=== PATIENT | female | born 1950 | race Caucasian/White ===

== ENCOUNTER 2021-02-01 10:01 | Outpatient (CLI) | payer MEDICARE, OTHER, SELFPAY ==
--- NOTE | ~2021-02-01 | CT_ITS ---
EXAMINATION: CT lung screening DATE: 02/01/2021 10:33 INDICATION: Personal history of nicotine dependence, current smoker with 50 pack year history TECHNIQUE: Computed tomography (CT) of the chest was performed without intravenous contrast. The dose -length product (DLP) was 91.81 mGy-cm. Automated exposure control and iterative reconstruction techn Intermolecular were employed. COMPARISON: 05/23/2017 FINDINGS: There are multiple small, stable solid nodules of the lungs which measure up to 5 mm in the right lower lobe. There is a 10 mm subsolid nodule of the left lower lobe interval enlargement but n o identifiable solid component. There is no pleural effusion or pneumothorax. No pathologically enlar ged thoracic lymph nodes are identified. The heart size is normal. A small sliding hiatal hernia is n oted. There is calcified coronary artery atherosclerosis. IMPRESSION: 1. Lung-RADS category 2: Benign appearance or behavior. Continue annual screening with noncontrast lo w-dose chest CT in 12 months. Reviewed, dictated and finalized at location B. 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 Lung-RADS category 2: Benign appearance or behavior. Continue annual screeni ng with noncontrast low-dose chest CT in 12 months.
== END 2021-02-01 10:02 | disposition home or self-care (01) ==
LOC: ANHIMG 10:03
PROVIDERS: PCP Family Medicine; Visit Provider Family Medicine
DX: Z12.2 Encounter for screening for malignant neoplasm of respiratory organs (principal); Z87.891 Personal history of nicotine dependence
CPT/HCPCS: 71271

== ENCOUNTER 2021-04-18 11:23 | Outpatient (RCR) | payer MEDICARE, OTHER, SELFPAY ==
[2021-04-18 14:28] VITALS: BP 181/72; PULSE 80; RESP 20; TEMP 36.8; O2SAT 97
[2021-04-18] MEDS: FAMOTIDINE 20 MG TABLET PO (14:30)
[2021-04-18] MEDS: diphenhydrAMINE HCl CAP 25 MG CAPSULE PO (14:30)
[2021-04-18] MEDS: ACETAMINOPHEN 325 MG TABLET 650 MG PO (14:30)
[2021-04-18 15:51] VITALS: BP 150/70; PULSE 72; O2SAT 98
== END 2021-04-18 17:00 ==
LOC: AMCINF 11:23
PROVIDERS: PCP Family Medicine; Visit Provider Internal Medicine Hematology & Oncology
DX: U07.1 COVID-19 (principal); J44.9 Chronic obstructive pulmonary disease, unspecified
CPT/HCPCS: A9270; M0247; Q0247

== ENCOUNTER 2021-12-20 08:49 | Outpatient (CLI) | payer MEDICARE, OTHER, SELFPAY ==
[2021-12-20 09:21] LABS: Basophils Absolute Auto 0.1 K/mm3 (0.0-0.1); Basophils Percent Auto 0.9 % (0.2-1.2); Eosinophils Absolute Auto 0.2 K/mm3 (0-0.3); Eosinophils Percent Auto 2.1 % (0-4.4); Hematocrit 47.4 % (37.0-47.0); Hemoglobin 15.2 g/dL (12.0-15.0); Immature Granulocyte Absolute 0.02 K/mm3 (0.00-0.031); Immature Granulocyte Percent A 0.3 % (0-0.5); Lymphocytes Absolute Auto 2.29 K/mm3 (0.9-3.2); Lymphocytes Percent Auto 29.7 % (18.3-44.2); Mean Corpuscular HGB Conc 32.1 g/dl (32-36); Mean Corpuscular Hemoglobin 32.1 pg (26-34); Mean Platelet Volume 9.3 fl (7.4-10.4); Monocytes Absolute Auto 0.5 K/mm3 (0.1-0.6); Monocytes Percent Auto 6.8 % (2.6-8.5); Neutrophils Absolute Auto 4.6 K/mm3 (1.3-6.7); Neutrophils Percent Auto 60.2 % (45.5-73.1); Platelet Count Result 237 k/mm3 (150-375); Red Blood Count 4.74 M/mm3 (4.2-5.4); Red Cell Distribution Width 14.8 % (11.5-14.5); White Blood Count 7.7 K/mm3 (4.5-10.0)
[2021-12-20 09:35] LABS: Alanine Aminotransferase 23 U/L (6-35); Albumin Level 4.8 g/dL (3.5-5.1); Alkaline Phosphatase 70 U/L (38-126); Anion Gap 14 mmol/L (8-16); Aspartate Amino Transferase 23 U/L (14-36); Bilirubin,Total 0.4 mg/dL (0.2-1.3); Blood Urea Nitrogen 18 mg/dL (7-17); Calcium 9.4 mg/dL (8.4-10.2); Carbon Dioxide 27 mmol/L (22-30); Chloride 102 mmol/L (98-107); Cholesterol 188 mg/dL (0-200); Estimated Glomerular Filt Rate > 60; Glucose 104 mg/dL (65-110); HDL Direct 40 mg/dL; Potassium 3.7 mmol/L (3.4-5.0); Sodium 143 mmol/L (137-145); Triglycerides 217 mg/dL (<150)
[2021-12-20 10:01] LABS: LDL Cholesterol Direct 67 mg/dL
== END 2021-12-20 08:50 | disposition home or self-care (01) ==
LOC: ANHLAB 08:54
PROVIDERS: PCP Family Medicine; Visit Provider Family Medicine
DX: E78.2 Mixed hyperlipidemia (principal); I10 Essential (primary) hypertension
CPT/HCPCS: 36415; 80053; 80061; 85025

== ENCOUNTER 2022-02-01 14:49 | Outpatient (CLI) | payer MEDICARE, OTHER, SELFPAY ==
--- NOTE | ~2022-02-01 | DEXA_ITS ---
Bone Density Report Name: DYLAN ACOSTA Age: 71 Sex: Female Ethnicity: White Date of : 1950 Indication: postmenopausal; screening for osteoporosis; height loss; cancer; asthma or emphysema; Referring Provider: KALYAN VOGT Study: Bone densitometry was performed. Exam Date: February 01, 2022 Accession number: [id number] Bone Density: Region BMD T-score Z-score Classification AP Spine(L1-L4) 1.084 0.3 2.6 Normal Femoral Neck (Left) 0.662 -1.7 0.3 Osteopenia Total Hip (Left) 0.905 -0.3 1.3 Normal Femoral Neck (Right) 0.683 -1.5 0.4 Osteopenia Total Hip (Right) 0.907 -0.3 1.4 Normal Total Hip Mean 0.906 -0.3 1.4 Normal World Health Organization criteria for BMD impression classify patients as: Normal (T-score at or above -1.0), Osteopenia (T-score between -1.0 and -2.5), or Osteoporosis (T-score at or below -2.5). 10-year Fracture Risk(1): Major Osteoporotic Fracture 11% Hip Fracture 3.1% Reported Risk Factors: [place] (), Neck BMD=0.662, BMI=29.9, smoking (1) FRAX(R) Version 3.08. Fracture probability calculated for an untreated patient. Fracture probability may be lower if the patient has received treatment. Clinical Information Provided by Patient: Smokes Has the following medical conditions: Asthma or Emphysema, Cancer Patient maximum height was 63 Menopause Age: 49 Drinks caffeinated beverages Onset of menses at age 11 Number of children 0 Impression: The patient has low bone mass, based on the Left Femoral Neck T-score. The patient has an estimated ten-year risk of hip fracture of 3.1% and an estimated ten-year risk of major fracture of 11%, based on the WHO FRAX algorithm. The patient has risk factors, including: smoking. Discussion: BONE DENSITY IS LOW AT ONE OR MORE SKELETAL SITES. THE PATIENT'S BMD AND CLINICAL RISK FACTORS CONTRIBUTE TO THIS PATIENT'S INCREASED RISK OF FRACTURE. This patient's lowest T-score is low at one or more skeletal sites. It meets the World Health Organization's (WHO) criteria for ?low bone mass? (T-score between -1.0 and -2.5). The patient's 10-year risk of hip fracture as calculated by FRAX exceeds the threshold where pharmacological therapy is recommended by the National Osteoporosis Foundation (NOF). However, all treatment decisions require clinical judgment and consideration of individual patient factors, including patient preferences, comorbidities, previous drug use, risk factors not captured in the FRAX model (e.g., frailty, falls, vitamin D deficiency, increased bone turnover, interval significant decline in bone density) and possible under or overestimation of fracture risk by FRAX. The patient should follow a healthful lifestyle (good nutrition with adequate calcium and vitamin D, and appropriate weight-
--- NOTE | ~2022-02-01 | MM_ITS ---
EXAMINATION: MM screening kris BI w shelbie HISTORY: Screening mammogram TECHNIQUE: Craniocaudal and mediolateral oblique 3-D tomosynthesis images were obtained and synthetic 2-D images were generated. CAD analysis was submitted and interpreted. COMPARISON: 06/24/2011, 04/23/2010 bilateral screening mammogram examinations BREAST PARENCHYMAL COMPOSITION: There are scattered areas of fibroglandular density. FINDINGS: There is no evidence of suspicious mass, calcification, or architectural distortion to sugg est malignancy in either breast. There has been no suspicious interval change. IMPRESSION: 1. No mammographic evidence of malignancy. 2. Recommend routine screening mammography in one year. BI-RADS Category 1: Negative Reviewed, dictated and finalized at location A. R TENDER
== END 2022-02-01 14:50 | disposition home or self-care (01) ==
LOC: ANHIMG 14:51
PROVIDERS: PCP Family Medicine; Visit Provider Family Medicine
DX: Z12.31 Encounter for screening mammogram for malignant neoplasm of breast (principal); Z78.0 Asymptomatic menopausal state; M85.852 Other specified disorders of bone density and structure, left thigh; M85.851 Other specified disorders of bone density and structure, right thigh
CPT/HCPCS: 77063; 77067; 77080

== ENCOUNTER 2022-02-26 08:32 | Outpatient (CLI) | payer MEDICARE, OTHER, SELFPAY ==
--- NOTE | ~2022-02-26 | CT_ITS ---
EXAMINATION: CT lung screening DATE: 02/26/2022 08:48 INDICATION: Lung cancer screening TECHNIQUE: Computed tomography (CT) of the chest was performed without intravenous contrast. The dose -length product was 72.98 mGy-cm. Automated exposure control and iterative reconstruction technique w ere employed. COMPARISON: CT dated 02/01/2021 FINDINGS: Heart size is normal. No significant pleural or pericardial effusion. No thoracic lymphaden opathy. The upper abdomen is unremarkable. There is an enlarging subsolid 12 mm left lower lobe nodul e with 7 mm solid component. No endobronchial lesions. No pneumothorax. There is an enlarging 6 mm gr oundglass right lower lobe nodule. There are additional small bilateral nodules measuring 3 mm or les s, unchanged. No focal lytic or blastic lesions. Mild thoracic spondylosis. IMPRESSION: 1. BI-RADS Category 4A: Follow-up low dose CT chest in 3 months or PET/CT scan recommended. Reviewed, dictated and finalized at location A. 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
== END 2022-02-26 08:33 | disposition home or self-care (01) ==
PROVIDERS: PCP Family Medicine; Visit Provider Family Medicine
DX: Z12.2 Encounter for screening for malignant neoplasm of respiratory organs (principal); Z87.891 Personal history of nicotine dependence; R91.8 Other nonspecific abnormal finding of lung field
CPT/HCPCS: 71271

== ENCOUNTER 2022-05-31 15:26 | Outpatient (CLI) | payer MEDICARE, SELFPAY ==
--- NOTE | ~2022-05-31 | CT_ITS ---
CT Scan of the Chest without Contrast: Clinical Indication: Abnormal CT Technique: Contiguous sections were acquired throughout the chest without intravenous contrast. Dose reduction technique was used on this scan by utilizing automated exposure control and iterative recon struction technique. The dose-length product (DLP) was 221.02 mGy-cm. COMPARISON: 02/26/2022 Findings: There is no evidence of any significant mediastinal, hilar or axillary lymphadenopathy. The mediastin al soft tissues appear normal. There is no evidence of pleural or pericardial effusion. Stable groundglass nodule in the right lower lobe measuring 5 mm (axial image 69). Larger groundglass nodule in the left lower lobe is also unchanged, measuring 1.1 cm in diameter (axial image 70). Images through the upper abdomen reveal no abnormalities. Impression: Groundglass pulmonary nodules, as detailed above, probably without significant change from prior exam . These are indeterminate. Reviewed, dictated and finalized at [facility]. HEALTH CNA Impression: Groundglass pulmonary nodules, as detailed above, probably without significant change from prior exam. These are indeterminate.
== END 2022-05-31 15:27 | disposition home or self-care (01) ==
PROVIDERS: PCP Family Medicine; Visit Provider Family Medicine
DX: R93.89 Abnormal findings on diagnostic imaging of other specified body structures (principal); Z85.118 Personal history of other malignant neoplasm of bronchus and lung
CPT/HCPCS: 71250

== ENCOUNTER 2022-07-23 07:50 | Outpatient (CLI) | payer MEDICARE, SELFPAY ==
--- NOTE | 2022-07-23 12:19 | WPDSIXMINUTE ---
Six Minute Walk Procedure Procedure Performed Pulmonary Stress Test (6 min walk) Six Minute Walk Six Minute Walk: This is a 6 minute walk test. The test was performed and interpreted in accordance with the 2014 ERS/ATS task force guidelines. Findings: The patient's resting room air oxygen saturation measured by pulse oximetry was 96% and heart rate was 75 bpm. Patient ambulated for 396 meters and oxygen saturation remained 95 to 96%. Heart rate at the end of the study was 79 bpm. The patient did not qualify for supplemental oxygen at rest or with ambulation. There are no prior studies for comparison.
--- NOTE | 2022-07-23 12:20 | P.PCNPFT_ITS ---
PFT Procedure Performed PFT Procedure Performed Spirometry with Pre/Post Bronchodilator Plethysmography (Lung Vol) Diffusing Cap (DLCO) Flow Vol Loop PFT Interpretation This is a pulmonary function test with pre and post-bronchodilator spirometry, plethysmography and diffusing capacity. The test was performed and results interpreted in accordance with the 2019 and 2005 ATS/ERS Task Force guidelines respectively using the Global Lung Function Initiative-2012 reference equations. Patient demonstrated good effort and cooperation. Reproducibility criteria were met. The quality of the pre bronchodilator spirometry maneuver was Grade A and post bronchodilator spirometry maneuver was Grade A. Findings: Spirometry: There is decreased maximal expiratory airflow at all lung volumes with a concave expiratory flow tracing. The contour the inspiratory flow tracing is normal. The pre bronchodilator FVC is 2.59 L, 101% predicted. The pre bronchodilator FEV1 is 1.30 L, 65% predicted. The pre bronchodilator FEV1: FVC ratio is 50%. The post bronchodilator FVC is 2.92 L, representing a 13% increase. The post bronchodilator FEV1 is 1.52 L, representing a 17% increase. The post bronchodilator FEV1: FVC ratio is 52%. Plethysmography: The total lung capacity is 5.01 L, 106% predicted. The funct ional residual capacity is 2.98 L, 111% predicted. The residual volume is 2.14 L, 101% predicted. Diffusion capacity: The diffusing capacity unadjusted for hemoglobin and carboxyhemoglobin is 16.3, 84% predicted. The diffusing capacity adjusted for alveolar volume is 3.92, 90% predicted. Impression: There is a moderate obstructive abnormality with significant improvement after inhaling a single dose of albuterol. The lung volumes are normal. The diffusing capacity is normal. There are no prior studies for comparison
== END 2022-07-23 07:51 | disposition home or self-care (01) ==
PROVIDERS: PCP Family Medicine; Visit Provider Internal Medicine Pulmonary Disease
DX: R06.00 Dyspnea, unspecified (principal); J40 Bronchitis, not specified as acute or chronic; Z72.0 Tobacco use
CPT/HCPCS: 94060; 94618; 94726; 94729

== ENCOUNTER 2022-10-17 08:59 | Outpatient (CLI) | payer MEDICARE, SELFPAY ==
--- NOTE | ~2022-10-17 | US_ITS ---
US art doppler w press LE BI INDICATION: Claudication TECHNIQUE: Segmental pressures and plethysmographic and Doppler waveforms of the brachial and lower e xtremity arteries were obtained. COMPARISON: None. FINDINGS: Right and left brachial artery pressures of 146 mm Hg and 144 mm Hg, respectively, are concordant (no rmal difference <= 30 mmHg). The right ankle-brachial index (ABRAHAM) is 1.03 (normal >= 0.9-1.0). The right great toe-brachial index (TBI) is 0.51 (normal >= 0.60). The left ABRAHAM is 1.15. The left TBI is 0.18. IMPRESSION: 1. Normal bilateral ankle-brachial indices. 2: Diminished bilateral toe brachial indices consistent with peripheral arterial disease. Reviewed, dictated and finalized at location A. IMPRESSION: 1. Normal bilateral ankle-brachial indices. 2: Diminished bilateral toe brachial indices consistent with peripheral arteri al disease.
== END 2022-10-17 09:00 | disposition home or self-care (01) ==
PROVIDERS: PCP Family Medicine; Visit Provider Family Medicine
DX: I73.9 Peripheral vascular disease, unspecified (principal)
CPT/HCPCS: 93923

== ENCOUNTER 2022-12-02 08:56 | Outpatient (CLI) | payer MEDICARE, SELFPAY ==
--- NOTE | ~2022-12-02 | CT_ITS ---
CT Scan of the Chest without Contrast: Clinical Indication: Lung nodule Technique: Contiguous sections were acquired throughout the chest without intravenous contrast. Dose reduction technique was used on this scan by utilizing automated exposure control and iterative recon struction technique. The dose-length product (DLP) was 103.14 mGy-cm. COMPARISON: 05/31/2022 Findings: There is no evidence of any significant mediastinal, hilar or axillary lymphadenopathy. The mediastin al soft tissues appear normal. There is no evidence of pleural or pericardial effusion. 5 mm apical semisolid nodule noted (axial image 19). There is linear scarring at the right middle lob e. Stable irregular nodule the right lower lobe (axial image 67). Irregular groundglass opacity in th e left lower lobe is similar to prior exam.. Images through the upper abdomen reveal no abnormalities. Impression: 5 mm semisolid/ground glass right apical nodule is new from prior exam. Additional irregular groundglass/semisolid nodules are unchanged. Reviewed, dictated and finalized at location . Impression: 5 mm semisolid/ground glass right apical nodule is new from prior exam. Additional irregular groundglass/semisolid nodules are unchanged.
== END 2022-12-02 08:57 | disposition home or self-care (01) ==
PROVIDERS: PCP Family Medicine; Visit Provider Internal Medicine Pulmonary Disease
DX: R91.8 Other nonspecific abnormal finding of lung field (principal); R91.1 Solitary pulmonary nodule
CPT/HCPCS: 71250

== ENCOUNTER 2023-05-26 09:47 | Outpatient (CLI) | payer MEDICARE, SELFPAY ==
[2023-05-26 11:15] LABS: Basophils Percent Auto 0.5 % (0.2-1.2); Eosinophils Absolute Auto 0.1 K/mm3 (0-0.3); Eosinophils Percent Auto 1.4 % (0-4.4); Hematocrit 47.7 % (37.0-47.0); Hemoglobin 14.8 g/dL (12.0-15.0); Immature Granulocyte Absolute 0.02 K/mm3 (0.00-0.031); Immature Granulocyte Percent A 0.2 % (0-0.5); Lymphocytes Absolute Auto 2.83 K/mm3 (0.9-3.2); Lymphocytes Percent Auto 35.2 % (18.3-44.2); Mean Corpuscular Volume 96.6 fl (80-100); Mean Platelet Volume 9.7 fl (7.4-10.4); Monocytes Absolute Auto 0.6 K/mm3 (0.1-0.6); Monocytes Percent Auto 7.6 % (2.6-8.5); Neutrophils Absolute Auto 4.4 K/mm3 (1.3-6.7); Neutrophils Percent Auto 55.1 % (45.5-73.1); Platelet Count Result 244 k/mm3 (150-375); Red Blood Count 4.94 M/mm3 (4.2-5.4); Red Cell Distribution Width 15.6 % (11.5-14.5); White Blood Count 8.1 K/mm3 (4.5-10.0)
[2023-05-26 11:27] LABS: Alanine Aminotransferase 23 U/L (6-35); Albumin Level 4.7 g/dL (3.5-5.1); Alkaline Phosphatase 94 U/L (38-126); Anion Gap 9 mmol/L (8-16); Aspartate Amino Transferase 26 U/L (14-36); Bilirubin,Total 0.6 mg/dL (0.2-1.3); Blood Urea Nitrogen 19 mg/dL (7-17); Calcium 9.5 mg/dL (8.4-10.2); Carbon Dioxide 28 mmol/L (22-30); Chloride 105 mmol/L (98-107); Cholesterol 178 mg/dL (0-200); Estimated Glomerular Filt Rate > 60; Glucose 97 mg/dL (65-110); HDL Direct 44 mg/dL; Potassium 3.8 mmol/L (3.4-5.0); Sodium 142 mmol/L (137-145); Triglycerides 272 mg/dL (<150)
[2023-05-26 11:38] LABS: LDL Cholesterol Direct 71 mg/dL
== END 2023-05-26 09:48 | disposition home or self-care (01) ==
PROVIDERS: PCP Family Medicine; Visit Provider Physician Assistant
DX: E78.5 Hyperlipidemia, unspecified (principal); I10 Essential (primary) hypertension
CPT/HCPCS: 36415; 80053; 80061; 85025

== ENCOUNTER 2023-07-31 09:07 | Inpatient (IN) | payer MEDICARE, SELFPAY ==
--- NOTE | ~2023-07-31 | CT_ITS ---
EXAMINATION: CT abdomen pelvis wo con DATE: 07/31/2023 09:56 INDICATION: Abdominal pain. Constipation. TECHNIQUE: Computed tomography (CT) of the abdomen and pelvis was performed without intravenous contr ast. Automated exposure control and iterative reconstruction technique were employed. The dose-length product was 464.94 mGy-cm. COMPARISON: CT abdomen and pelvis 05/23/2016 FINDINGS: The visualized portions of the lung bases demonstrate mild atelectasis. There is a chronic 4 mm nodule in right lung lower lobe, likely benign. There are changes of left lower lobectomy. No pl eural effusion. The heart size is normal. There are coronary artery calcifications. No pericardial ef fusion. The liver is normal. There are changes of cholecystectomy. The spleen, pancreas, and adrenal glands are normal. There is a 12 mm hemorrhagic cyst in right kidney. There are 1 mm and 2 mm stones in left kidney. There is a right inguinal hernia containing fat. There are scattered diverticula in t he colon. There is wall thickening of the sigmoid colon with surrounding fat stranding, consistent wi th diverticulitis. The appendix is normal. Aortic atherosclerosis is noted. There are no pathological ly enlarged lymph nodes. There is trace ascites. There is mild thoracic and lumbar spondylosis. IMPRESSION: 1. Acute sigmoid diverticulitis. No perforation or abscess. Reviewed, dictated and finalized at location A.
[2023-07-31 09:10] VITALS: BP 112/47; PULSE 98; RESP 18; TEMP 36.6; O2SAT 100
--- NOTE | 2023-07-31 09:30 | ED.GENADULT ---
HPI - General Adult General Chief complaint: Abdominal Pain Stated complaint: abd pain Time Seen by Provider: 07/31/23 09:15 History of Present Illness HPI narrative: Maliha Gallardo is a 73 y/o female with PMHx of HTN/ HLD/ COPD Pack a day smoker / Cholecystectomy -- who presents today with reports of having abdominal pain for about 9 days. She states that she thought she was constipated which she states she never is, she usually has a daily BM. She took a laxative last then passed one large hard BM, then did not have any more BM's and continued to have abdominal pain/ nausea she has not eaten now for 3 days. She took another laxative 3 days ago and states she had a lot of diarrhea that day and now has not gone again and has continued pain/ nausea No known fevers + urinary urgency that also started last week. Denies chest pain/ SOB Related Data Allergies Allergy/AdvReac Type Severity Reaction Status Date / Time iodine Allergy Unknown Anaphylactic Verified 05/29/23 13:24 Shock meperidine Allergy Unknown Anaphylactic Verified 05/29/23 13:24 Shock Penicillins Allergy Unknown ASTHMA Verified 07/31/23 12:40 ATTACK olodaterol AdvReac Intermediate Cramping Verified 05/29/23 13:24 [From Stiolto Respimat] of the Muscles tiotropium AdvReac Intermediate Cramping Verified 05/29/23 13:24 [From Stiolto Respimat] of the Muscles Review of Systems Review of Systems: CONSTITUTIONAL: Denies fever, chills, or sweats. EYES: Denies visual changes, redness, or discharge. ENT: Denies rhinorrhea, congestion, sore throat, or otalgia. CARDIOVASCULAR: Denies chest pain, palpitations, or edema. RESPIRATORY: Denies cough or dyspnea. GASTROINTESTINAL: Reports abdominal pain, nausea GENITOURINARY: Reports some urinary urgency for the past week SKIN: Denies rash or itching. MUSCULOSKELETAL: Denies back pain, joint pain, or myalgia. NEUROLOGIC: Denies headache, numbness, dizziness, or weakness. PSYCHIATRIC: Denies anxiety or depression. [facility] Past Medical History Medical History Abnormal colonoscopy need to repeat 2020 Abscess of skin of neck Acquired polycythemia Adenomatous polyposis coli Adverse effect due to correct medicinal substance, properly given Atherosclerosis of aorta Basal cell carcinoma (BCC) of clavicular area Benign essential HTN Breast cancer screening Breast screening Claudication Colon polyposis Colon polyps Coronary atherosclerosis due to calcified coronary lesion Encounter for blood transfusion Essential (primary) hypertension HTN (hypertension) with goal to be determined Hx of cancer of lung Hyperlipidemia Lung cancer Major depressive disorder, recurrent, moderate MDD (major depressive disorder) Mixed hyperlipidemia Mixed hyperlipidemia Muscle stiffness Nicotine dependence, unspecified, uncomplicated Other iron deficiency anemias Post-polypectomy bleeding Postmenopausal Pulmonary nodule, right Pulmonary nodules Pulsatile abdominal mass SCC (squamous cell carcinoma), shoulder Sciatica of left side Tobacco abuse Surgical History Surgical History H/O rectal polypectomy S/P partial lobectomy of lung Left, 1994 Family History Family History Other Carcinoma of colon Heart disease Hypertension Social History Social History Social History: Single Smoking packs per day: 0.50 Smoking cigarettes per day: 10.0 Years smoked: 50 Smoking pack-years: 25.00 Smoking status: Current every day smoker Second hand tobacco smoke exposure: No Alcohol intake: current Drinks per week: 2 Substance use: never Substance use type: does not use Do You Feel Safe in your Home?: Yes Lack of Transportation: No Lack of Food: Never True Current Housing: I Hav
[2023-07-31 09:39] LABS: Basophils Absolute Auto 0.1 K/mm3 (0.0-0.1); Basophils Percent Auto 0.3 % (0.2-1.2); Eosinophils Absolute Auto 0.1 K/mm3 (0-0.3); Eosinophils Percent Auto 0.3 % (0-4.4); Hematocrit 44.3 % (37.0-47.0); Hemoglobin 14.6 g/dL (12.0-15.0); Immature Granulocyte Absolute 0.12 K/mm3 (0.00-0.031); Immature Granulocyte Percent A 0.6 % (0-0.5); Lymphocytes Percent Auto 12.6 % (18.3-44.2); Mean Corpuscular Hemoglobin 31.1 pg (26-34); Mean Corpuscular Volume 94.5 fl (80-100); Mean Platelet Volume 8.9 fl (7.4-10.4); Monocytes Absolute Auto 1.1 K/mm3 (0.1-0.6); Monocytes Percent Auto 5.4 % (2.6-8.5); Neutrophils Absolute Auto 16.1 K/mm3 (1.3-6.7); Neutrophils Percent Auto 80.8 % (45.5-73.1); Platelet Count Result 375 k/mm3 (150-375); Red Blood Count 4.69 M/mm3 (4.2-5.4); White Blood Count 19.9 K/mm3 (4.5-10.0)
[2023-07-31] MEDS: FAMOTIDINE 20 MG/2 ML VIAL IV PUSH (09:44)
[2023-07-31] MEDS: KETOROLAC 30 MG/ML VIAL (*BKC) IV PUSH (09:44)
[2023-07-31] MEDS: LACTATED RINGERS 1,000 ML 999 ML IV CONT ×2 (09:44→12:16)
[2023-07-31] MEDS: ONDANSETRON INJ 4 MG/2 ML VIAL IV PUSH (09:44)
[2023-07-31 09:48] LABS: Alanine Aminotransferase 26 U/L (6-35); Albumin Level 4.9 g/dL (3.5-5.1); Alkaline Phosphatase 107 U/L (38-126); Anion Gap 16 mmol/L (4-12); Aspartate Amino Transferase 26 U/L (14-36); Bilirubin,Total 1.5 mg/dL (0.2-1.3); Blood Urea Nitrogen 31 mg/dL (7-17); Calcium 9.7 mg/dL (8.4-10.2); Carbon Dioxide 19 mmol/L (22-30); Chloride 101 mmol/L (98-107); Estimated CRCL calculation 27 ml/min; Estimated Glomerular Filt Rate 34; Glucose 117 mg/dL (65-110); Lipase 99 U/L (23-300); Potassium 3.5 mmol/L (3.4-5.0); Sodium 136 mmol/L (137-145)
[2023-07-31 11:02] VITALS: BP 118/67; PULSE 84; RESP 16; O2SAT 96
--- NOTE | 2023-07-31 11:15 | PC.NURSE ---
Report received and care of patient assumed at this time.
[2023-07-31 11:22] LABS: Lactic Acid Reflex 1.2 mmol/L (0.7-2.0)
[2023-07-31] MEDS: CIPROFLOXACIN 400 MG/D5W 200ML 200 ML 200 MG IVPB (12:12)
[2023-07-31 12:40] VITALS: BP 121/46; PULSE 81; RESP 18; TEMP 36.4; O2SAT 94
--- NOTE | 2023-07-31 12:56 | ADMGEN ---
This patient, Maliha Gallardo, was admitted to [facility] Surg Room 322-01. Patient/family oriented to hospital policies and general routines including ID bracelet, bed and alarms, visiting hours, pain management, procedures, bathroom and other care routines, personal items, smoking policy, room service/diet, and visiting hours. Information on how to activate the Rapid Response Team has been discussed. Patient/Family are encouraged to report perceived risks to care and to ask questions if they do not understand what they are told or what they should do.
--- NOTE | 2023-07-31 12:57 | PM.IMHP ---
H&P: HPI History of Present Illness Date/Time: 07/31/23 12:57 Chief Complaint: Abdominal Pain Narrative: 73 y/o F presents here with abdominal pain and constipation with PMH of COPD, HTN, HLD, lung cancer (encapsulated, resected - 1994), MDD, skin cancer, and tobacco use (1 PPD x 50 years). Patient presents here from home for further evaluation of abdominal pain. Pain started on 07/22 (approximately 9 days). She describes it as lower abdominal cramping, nonradiating, constant, aggravated by movement and alleviated by the position (knees to chest). Reports constipation for the past week, last solid bowel movement was on 07/23 after she took a laxative and was able to pass a large hard bowel movement. Attempted to take a 2nd dose of laxatives on 07/27 (3 days ago) but has only passed diarrhea later that day and has not been able to pass any stool since. Reports that she developed poor p.o. intake, weakness, dizziness, and urinary urgency last 2-3 days. Previous abdominal surgeries - cholecystectomy and tubal ligation. Endorsing fever and chills that would alternate. Denies body aches. Initial VS at presentation: 97.9? F, HR 98, RR 18, 112/47, and 100% on RA ED workup showed: WBC 19.9, no anemia, creatinine 1.5 and GFR 34 (previously 0.7 and GFR >60 on 05/26/2023). CT of the abdomen pelvis showed acute sigmoid diverticulitis without perforation or abscess. Review of Systems Review of Systems: All systems reviewed & are unremarkable except as noted in HPI and below [facility] Past Medical History Medical History Abnormal colonoscopy need to repeat 2019 Abscess of skin of neck Acquired polycythemia Adenomatous polyposis coli Adverse effect due to correct medicinal substance, properly given Atherosclerosis of aorta Basal cell carcinoma (BCC) of clavicular area Benign essential HTN Breast cancer screening Breast screening Claudication Colon polyposis Colon polyps Coronary atherosclerosis due to calcified coronary lesion Encounter for blood transfusion Essential (primary) hypertension HTN (hypertension) with goal to be determined Hx of cancer of lung Hyperlipidemia Lung cancer Major depressive disorder, recurrent, moderate MDD (major depressive disorder) Mixed hyperlipidemia Mixed hyperlipidemia Muscle stiffness Nicotine dependence, unspecified, uncomplicated Other iron deficiency anemias Post-polypectomy bleeding Postmenopausal Pulmonary nodule, right Pulmonary nodules Pulsatile abdominal mass SCC (squamous cell carcinoma), shoulder Sciatica of left side Tobacco abuse Surgical History Surgical History H/O rectal polypectomy S/P partial lobectomy of lung Left, 1994 Family History Family History Other Carcinoma of colon Heart disease Hypertension Social History Social History Social History: Single Smoking packs per day: 0.50 Smoking cigarettes per day: 10.0 Years smoked: 50 Smoking pack-years: 25.00 Smoking status: Current every day smoker Second hand tobacco smoke exposure: No Alcohol intake: current Drinks per week: 2 Substance use: never Substance use type: does not use Do You Feel Safe in your Home?: Yes Lack of Transportation: No Lack of Food: Never True Current Housing: I Have Housing Concerned About Future Housing: No Difficulty Paying Gas/Electric Bills: No Difficulty Paying for Meds: No Currently Unemployed: YES Education: Decline to Answer Difficulty w/ Childcare or Family Care: No Living arrangements: with family Occupation/Education: retired Gender identity (if verbalized by the patient): Female Sexual Orientation (if Verbalized by the Patient): Straight or Heterosexual Spiritual care concerns: No Meds Home Medic
[2023-07-31 12:59] VITALS: BMI 30.9
[2023-07-31 14:00] VITALS: BP 121/46; PULSE 81; RESP 18; TEMP 36.4; O2SAT 94
[2023-07-31] MEDS: metroNIDAZOLE 500 MG/ISO 100ML 500 MG/100 ML BAG 100 MG IVPB ×2 (14:18→22:17)
[2023-07-31] MEDS: LACTATED RINGERS 1,000 ML 100 ML IV CONT (14:21)
[2023-07-31 16:59] LABS: Appearance Urine Cloudy (Clear); Bacteria Urine None Seen /hpf; Bilirubin Urine Negative (Negative); Blood Urine Trace (Negative); Color Urine Yellow (Yellow); Glucose Urine UA Negative (Negative); Ketones Urine Negative (Negative); Leukocyte Esterase Ur 1+ LEU/UL (Negative); Need Manual Microscopic Reviewed; Nitrate Urine Negative (Negative); Protein Urine Trace mg/dL (Negative); RBC Urine 0-2 /hpf (0-2); Specific Grav Ur 1.013 (1.001-1.035); Squamous Epithelial Cell Urine Occasional /hpf (Few); pH Urine 5.5 (5.0-9.0)
[2023-07-31 17:15] LABS: Add Urine Microscopic? YES
[2023-07-31] MEDS: cilostazoL 50 MG TABLET PO (17:17)
[2023-07-31 22:00] VITALS: BP 149/60; PULSE 89; RESP 16; TEMP 36.8; O2SAT 95
[2023-07-31] MEDS: HYDROcodone/acetaminophen (*CRX) 5-325 MG TABLET 1 TAB PO (22:17)
[2023-08-01] MEDS: metroNIDAZOLE 500 MG/ISO 100ML 500 MG/100 ML BAG 100 MG IVPB ×4 (02:06→20:41)
[2023-08-01] MEDS: cilostazoL 50 MG TABLET PO ×2 (05:41→16:44)
[2023-08-01 06:00] VITALS: BP 116/84; PULSE 75; RESP 16; TEMP 36.7; O2SAT 96
[2023-08-01 06:00] LABS: Basophils Percent Auto 0.3 % (0.2-1.2); Eosinophils Absolute Auto 0.1 K/mm3 (0-0.3); Eosinophils Percent Auto 1.2 % (0-4.4); Hematocrit 34.9 % (37.0-47.0); Hemoglobin 11.3 g/dL (12.0-15.0); Immature Granulocyte Absolute 0.06 K/mm3 (0.00-0.031); Immature Granulocyte Percent A 0.5 % (0-0.5); Lymphocytes Absolute Auto 1.42 K/mm3 (0.9-3.2); Lymphocytes Percent Auto 12.3 % (18.3-44.2); Mean Corpuscular HGB Conc 32.4 g/dl (32-36); Mean Corpuscular Hemoglobin 30.9 pg (26-34); Mean Corpuscular Volume 95.4 fl (80-100); Mean Platelet Volume 8.9 fl (7.4-10.4); Monocytes Absolute Auto 0.9 K/mm3 (0.1-0.6); Monocytes Percent Auto 7.8 % (2.6-8.5); Neutrophils Percent Auto 77.9 % (45.5-73.1); Platelet Count Result 259 k/mm3 (150-375); Red Blood Count 3.66 M/mm3 (4.2-5.4); Red Cell Distribution Width 14.9 % (11.5-14.5); White Blood Count 11.6 K/mm3 (4.5-10.0)
[2023-08-01 06:13] LABS: Alanine Aminotransferase 21 U/L (6-35); Albumin Level 3.5 g/dL (3.5-5.1); Alkaline Phosphatase 77 U/L (38-126); Anion Gap 6 mmol/L (4-12); Aspartate Amino Transferase 22 U/L (14-36); Bilirubin,Total 0.8 mg/dL (0.2-1.3); Blood Urea Nitrogen 17 mg/dL (7-17); Calcium 8.6 mg/dL (8.4-10.2); Carbon Dioxide 25 mmol/L (22-30); Chloride 107 mmol/L (98-107); Creatine Kinase 93 U/L (30-135); Estimated CRCL calculation 49 ml/min; Estimated Glomerular Filt Rate > 60; Glucose 102 mg/dL (65-110); Magnesium 1.8 mg/dL (1.6-2.3); Potassium 3.4 mmol/L (3.4-5.0); Sodium 138 mmol/L (137-145)
[2023-08-01] MEDS: IRBESARTAN 150 MG TABLET 300 MG PO (08:56)
[2023-08-01] MEDS: hydroCHLOROthiazide 12.5 MG CAPSULE PO (08:56)
[2023-08-01] MEDS: EZETIMIBE 10 MG TABLET PO (08:57)
[2023-08-01] MEDS: ATORVASTATIN 40 MG TABLET PO (08:57)
[2023-08-01] MEDS: FLUoxetine HCL 20 MG CAPSULE PO (08:57)
[2023-08-01] MEDS: PANTOPRAZOLE SODIUM IV 40 MG VIAL IV PUSH (08:58)
[2023-08-01] MEDS: CIPROFLOXACIN 400 MG/D5W 200ML 200 ML 200 MG IVPB ×2 (10:43→20:52)
[2023-08-01 11:10] LABS: Creatinine Urine 57.4 mg/dL; Total Protein Urine Random 11 mg/dL; Ur Ttl Prot Creatinine Ratio 0.19 mg/mg (0-0.20)
[2023-08-01 11:11] LABS: Sodium Urine Random 78 meq/L
[2023-08-01 14:00] VITALS: BP 104/41; PULSE 79; RESP 17; TEMP 36.9; O2SAT 95
--- NOTE | 2023-08-01 14:51 | PM.IMPN ---
Progress Note: A&P Assessment and Plan (1) Sepsis: Qualifiers: Sepsis type: sepsis due to unspecified organism Sepsis acute organ dysfunction status: without acute organ dysfunction Qualified Code(s): A41.9 - Sepsis, unspecified organism Code(s): A41.9 - Sepsis, unspecified organism Status: Acute Assessment and Plan: - meets SIRS criteria: HR and WBC. no hypotension or hypoxia. - lactic acid: 1.2 - Patient received total of 3 L IV fluids - suspected source: diverticulitis - started on Cipro and metronidazole on 07/30 - blood cultures drawn on 07/30 - UA abnormal, UC pending. (2) Diverticulitis: Code(s): K57.92 - Diverticulitis of intestine, part unspecified, without perforation or abscess without bleeding Status: Acute Assessment and Plan: - CT abd/pelvis: Acute sigmoid diverticulitis. No perforation or abscess. - WBC 19.9 -> 11.6 - met SIRS criteria - started on cipro and metronidazole on 07/30 - Low fiber diet. (3) ASHWIN (acute kidney injury): Code(s): N17.9 - Acute kidney failure, unspecified Status: Acute Assessment and Plan: - creatinine 1.5, previously 0.7 on 05/26/23 - GFR 34, previously >60 on 05/26/23 - no hx of CKD - monitor I&Os - trend renal function - trend electrolytes, correct as needed - suspect ASHWIN secondary to dehydration (4) HTN (hypertension) with goal to be determined: Code(s): I10 - Essential (primary) hypertension Status: Chronic Assessment and Plan: - chronic, currently 121/46 - continue home medications: irbesartan and HCTZ - monitor Subjective Date/time seen: 08/01/23 14:51 Interval history: Patient feels much better after receiving fluids and antibiotics. She is tolerating clear liquid diet well. She denies any abdominal pain. Will start her on low-fiber diet. If patient does well with this consider pending on p.o. antibiotics and discharge home tomorrow. White blood cell count much improved today. She denies any nausea vomiting. She has not had bowel movement. No signs of obstruction or impaction on imaging. She also denies any hematochezia or melena. Exam Narrative: GENERAL: Comfortable, no acute distress HENMT: moist mucous membranes EYES: EOM intact b/l NECK: no lymphadenopathy RESPIRATORY: clear to auscultation, no increased respiratory effort CARDIO: Regular rate and rhythm GI: soft, nontender, bowel sounds present SKIN/EXTREMITIES: no rashes, no edema, no redness or tenderness NEURO: PROM intact, answers questions appropriately, A&O x4 Objective Data Vital Signs Vital Signs: Vital Signs - 24 hr 07/31/23 15:13 07/31/23 22:00 08/01/23 06:00 Temperature 98.2 F 98.0 F Pulse Rate 89 75 Respiratory Rate 16 16 Blood Pressure 149/60 H 116/84 Pulse Oximetry 95 96 Oxygen Delivery Room Air 08/01/23 08:00 Temperature Pulse Rate Respiratory Rate Blood Pressure Pulse Oximetry Oxygen Delivery Room Air Intake/Output Intake/Output: Intake & Output 07/29/23 07/30/23 07/31/23 08/01/23 23:59 23:59 23:59 23:59 Intake Total 1100 1480 Output Total 300 Balance 800 1480 Meds/Results Medications: Active Medications Generic Name Dose Route Start Last Admin Trade Name Freq PRN Reason Stop Dose Admin Acetaminophen 500 mg 07/31/23 21:12 Acetaminophen 500 Mg Tablet PO Q6H PRN Mild Pain (1-3) or Fever Hydrocodone Bitart/Acetaminophen 1 tab 07/31/23 21:13 07/31/23 22:17 Hydrocodone/Acetaminophen (*Crx) 5-325 Mg Tablet PO 1 tab Q4H PRN Administration Pain Rated 4-6 Albuterol 1 puff 07/31/23 13:28 Albuterol Sulfate (*Sp) Aerosol 1 Puff INHALATION Q4H PRN shortness of breath or wheezing Atorvastatin Calcium 40 mg 08/01/23 09:00 08/01/23 08:57 Atorvastatin 40 Mg Tablet PO 40 mg DAILY CASEY Administration Cilostazol 50 mg 07/31/23 16:30 08/01/23 05:41 Cilo
[2023-08-01 20:00] VITALS: PULSE 71; RESP 18; O2SAT 95
[2023-08-01 20:53] VITALS: BP 101/59; PULSE 71; RESP 18; TEMP 36.7; O2SAT 95
[2023-08-02] MEDS: metroNIDAZOLE 500 MG/ISO 100ML 500 MG/100 ML BAG 100 MG IVPB ×2 (03:57→08:36)
[2023-08-02] MEDS: cilostazoL 50 MG TABLET PO (04:56)
[2023-08-02 05:19] VITALS: BP 123/52; PULSE 77; RESP 16; TEMP 36.7; O2SAT 96
[2023-08-02 07:24] LABS: Hematocrit 34.2 % (37.0-47.0); Hemoglobin 11.3 g/dL (12.0-15.0); Mean Corpuscular Hemoglobin 31.1 pg (26-34); Mean Corpuscular Volume 94.2 fl (80-100); Mean Platelet Volume 8.6 fl (7.4-10.4); Platelet Count Result 255 k/mm3 (150-375); Red Blood Count 3.63 M/mm3 (4.2-5.4); Red Cell Distribution Width 14.8 % (11.5-14.5); White Blood Count 8.9 K/mm3 (4.5-10.0)
[2023-08-02 07:55] LABS: Anion Gap 7 mmol/L (4-12); Blood Urea Nitrogen 11 mg/dL (7-17); Calcium 8.8 mg/dL (8.4-10.2); Carbon Dioxide 26 mmol/L (22-30); Chloride 105 mmol/L (98-107); Estimated CRCL calculation 56 ml/min; Estimated Glomerular Filt Rate > 60; Glucose 108 mg/dL (65-110); Potassium 3.3 mmol/L (3.4-5.0); Sodium 138 mmol/L (137-145)
[2023-08-02] MEDS: FLUTICASONE/UMECLIDIN/VILANTER 100-62.5-25 MCG ELLIPTA 1 PUFF INHALATION (08:08)
[2023-08-02 08:10] VITALS: O2SAT 96
[2023-08-02] MEDS: CIPROFLOXACIN 400 MG/D5W 200ML 200 ML 200 MG IVPB (08:36)
[2023-08-02] MEDS: IRBESARTAN 150 MG TABLET 300 MG PO (08:36)
[2023-08-02] MEDS: POTASSIUM CHLORIDE 20 MEQ ER TABLET 40 MEQ PO (08:36)
[2023-08-02] MEDS: FLUoxetine HCL 20 MG CAPSULE PO (08:36)
[2023-08-02] MEDS: hydroCHLOROthiazide 12.5 MG CAPSULE PO (08:36)
[2023-08-02] MEDS: EZETIMIBE 10 MG TABLET PO (08:36)
[2023-08-02] MEDS: ATORVASTATIN 40 MG TABLET PO (08:36)
[2023-08-02 14:00] VITALS: BP 129/63; PULSE 73; RESP 17; TEMP 36.3; O2SAT 100
--- NOTE | 2023-08-02 14:23 | PM.DS ---
DS: Admitting Diagnosis Discharge Date 08/02/23 Admitting Diagnosis Diverticulitis DS: Discharge Diagnosis Discharge Diagnosis (1) Sepsis: Qualifiers: Sepsis type: sepsis due to unspecified organism Sepsis acute organ dysfunction status: without acute organ dysfunction Qualified Code(s): A41.9 - Sepsis, unspecified organism Code(s): A41.9 - Sepsis, unspecified organism Status: Acute (2) Diverticulitis: Code(s): K57.92 - Diverticulitis of intestine, part unspecified, without perforation or abscess without bleeding Status: Acute (3) ASHWIN (acute kidney injury): Code(s): N17.9 - Acute kidney failure, unspecified Status: Acute (4) HTN (hypertension) with goal to be determined: Code(s): I10 - Essential (primary) hypertension Status: Chronic DS: Summary Hospital Course Hospital Course: 73 y/o F presents here with abdominal pain and constipation with PMH of COPD, HTN, HLD, lung cancer (encapsulated, resected - 1994), MDD, skin cancer, and tobacco use (1 PPD x 50 years). Patient presents here from home for further evaluation of abdominal pain. CT abdomen pelvis showing acute sigmoid diverticulitis. Patient started on ciprofloxacin and metronidazole. She was given a total of 3 L of fluids. Blood cultures negative for 48 hours. She did present with WBC 19.9, no anemia, creatinine 1.5 and GFR 34 (previously 0.7 and GFR >60 on 05/26/2023). patient's kidney function and white blood cell count improved with treatment. Patient was able to tolerate a low-fiber diet. Education given about diverticulitis given. Her labs and vital signs are stable and she is medically cleared for discharge at this time. Time Spent with Patient Time attestation: Total time spent providing and/or coordinating discharge services: Exam Narrative: GENERAL: Comfortable, no acute distress HENMT: moist mucous membranes EYES: EOM intact b/l NECK: no lymphadenopathy RESPIRATORY: clear to auscultation, no increased respiratory effort CARDIO: Regular rate and rhythm GI: soft, nontender, bowel sounds present SKIN/EXTREMITIES: no rashes, no edema, no redness or tenderness NEURO: PROM intact, answers questions appropriately, A&O x4 DS: Data Data Completed and Pending Labs on day of discharge: Labs from last 24 hours 08/02/23 07:18 WBC 8.9 RBC 3.63 L Hgb 11.3 L Hct 34.2 L MCV 94.2 MCH 31.1 MCHC 33.0 RDW 14.8 H Plt Count 255 MPV 8.6 Sodium 138 Potassium 3.3 L Chloride 105 Carbon Dioxide 26 Anion Gap 7 BUN 11 D Creatinine 0.70 Estim Creat Clear Calc 56 Estimated GFR > 60 Glucose 108 Calcium 8.8 Preliminary micro results at discharge 07/31/23 11:47 Blood Culture - Preliminary Blood 07/31/23 11:54 Blood Culture - Preliminary Blood Discharge Plan Discharge Consulting providers: Judi mSith Discharging Clinician: Pooja Bautista Patient Disposition: Home, Self-Care Activity: no preference Diet: low fiber Discharge Instructions: Medication: Ciprofloxacin 500 mg twice a day. Next dose tonight. Flagyl 500 mg 3 times a day . Next dose tonight Diet: Low fiber diet for 2 weeks, then high fiber thereafter. Metamucil daily for fiber supplementation. Example of low-fiber foods: Cream of wheat and finely ground grits, white bread, pasta and rice, well cooked fruit without skin or seeds, cow's milk, yogurt, cheese, eggs, poultry, ground beef, tofu and peanut butter Example of high-fiber foods: Whole grains, dried fruit, fresh fruit with skin, raw vegetables, greens such as spinach, tough meat, lentils such as agsutin beans and lentils. Increase daily activity. Recommend workout/ activity at least 30 minutes daily. Stay hydrated with water and limit the amount of coffee and soda daily. Discharge disposition: Take medications as prescribed Monitor blood pressures Avoid social areas, you wear a mask when in social
== END 2023-08-02 15:15 | disposition home or self-care (01) | DRG 872 ==
LOC: ANHED 09:42 → ANH3MEDSUR 11:55
PROVIDERS: Internal Medicine Critical Care Medicine; Student in an Organized Health Care Education/Training Program; Admitting Provider Internal Medicine; Emergency Provider Nurse Practitioner Family; PCP Family Medicine; Visit Provider Internal Medicine
DX: A41.9 Sepsis, unspecified organism (principal); F33.9 Major depressive disorder, recurrent, unspecified; K57.32 Diverticulitis of large intestine without perforation or abscess without bleeding; N17.9 Acute kidney failure, unspecified; I10 Essential (primary) hypertension; I25.10 Atherosclerotic heart disease of native coronary artery without angina pectoris; I70.0 Atherosclerosis of aorta; J44.9 Chronic obstructive pulmonary disease, unspecified; D75.1 Secondary polycythemia; D50.9 Iron deficiency anemia, unspecified; E78.5 Hyperlipidemia, unspecified; M54.32 Sciatica, left side; F17.210 Nicotine dependence, cigarettes, uncomplicated; Z80.0 Family history of malignant neoplasm of digestive organs; Z86.010 Personal history of colon polyps; Z85.118 Personal history of other malignant neoplasm of bronchus and lung
CPT/HCPCS: 36415; 74176; 80048; 80053; 81001; 82550; 82570; 83605; 83690; 83735; 84156; 84300; 85025; 85027; 87040; 87086; 94640; 96361; 96374; 96375; 99285; A9270; C9113; J0744; J1836; J1885; J2405; J7120

== ENCOUNTER 2023-10-22 10:01 | Outpatient (CLI) | payer MEDICARE, SELFPAY ==
--- NOTE | ~2023-10-22 | CT_ITS ---
CT Scan of the Chest without Contrast: Clinical Indication: Lung cancer screening, nicotine dependence Technique: Contiguous sections were acquired throughout the chest without intravenous contrast. Dose reduction technique was used on this scan by utilizing automated exposure control and iterative recon struction technique. The dose-length product (DLP) was 115.54 mGy-cm. COMPARISON: 1123 Findings: There is no evidence of any significant mediastinal, hilar or axillary lymphadenopathy. The mediastin al soft tissues appear normal. There is no evidence of pleural or pericardial effusion. Stable semisolid/ground glass irregular nodule at the left lower lobe measuring approximately 1.4 cm in extent. Stable 3 mm groundglass nodule right lower lobe. Images through the upper abdomen reveal no abnormalities. Impression: Lung RADS 2: Benign appearance. 12 month follow-up screening CT advised. Reviewed, dictated and finalized at location . Impression: Lung RADS 2: Benign appearance. 12 month follow-up screening CT advised.
== END 2023-10-22 10:02 | disposition home or self-care (01) ==
PROVIDERS: PCP Family Medicine; Visit Provider Family Medicine
DX: Z12.2 Encounter for screening for malignant neoplasm of respiratory organs (principal); Z87.891 Personal history of nicotine dependence
CPT/HCPCS: 71271

== ENCOUNTER → 2023-11-11 14:15 | Outpatient (REF) | payer MEDICARE, SELFPAY | LOC: ANHLAB 14:15 | PROVIDERS: PCP Family Medicine; Visit Provider Plastic Surgery | DX: C44.41 Basal cell carcinoma of skin of scalp and neck (principal) | CPT/HCPCS: 88305 ==

== ENCOUNTER 2024-02-12 08:20 | Outpatient (CLI) | payer MEDICARE, SELFPAY ==
--- NOTE | ~2024-02-12 | MM_ITS ---
EXAMINATION: MM screening kris BI w shelbie HISTORY: Screening mammogram TECHNIQUE: Craniocaudal and mediolateral oblique 3-D tomosynthesis images were obtained and synthetic 2-D images were generated. CAD analysis was submitted and interpreted. COMPARISON: 02/01/2022 BREAST PARENCHYMAL COMPOSITION:Not Dense. There are scattered areas of fibroglandular density. FINDINGS: No suspicious mass, calcification, or architectural distortion are identified in either kyle ast to suggest malignancy. There has been no suspicious interval change. IMPRESSION: No mammographic evidence of malignancy. Recommend routine screening mammography in one year. BI-RADS Category 1: Negative Reviewed, dictated and finalized at location . [employer]
== END 2024-02-12 08:21 | disposition home or self-care (01) ==
PROVIDERS: PCP Family Medicine; Visit Provider Family Medicine
DX: Z12.31 Encounter for screening mammogram for malignant neoplasm of breast (principal)
CPT/HCPCS: 77063; 77067

== ENCOUNTER 2024-04-19 12:36 | Outpatient (CLI) | payer MEDICARE, SELFPAY ==
--- OUTSIDE RECORDS SUMMARY | 2024-04-19 13:08 | XMS_ITS | Clinical Summary ---
Author Organization [facility] Address [address] [place] [address]. [place] [address] [place] [address] Care Team Providers Care [place] Worker Name Role Phone Nhi Islas MD Primary Care Provider [phone] Allergies Active Allergy Reactions Criticality Noted Date Comments Meperidine Nausea and Vomiting 09/23/2022 Iodine Rash,Unknown Low 04/07/2013 Penicillins Rash,Unknown Low 04/07/2013 Medications atorvastatin 40 MG tablet Take 1 tablet (40 mg total) by mouth daily. 0 9 Active fluoxetine 20 MG capsule Take 1 capsule (20 mg total) by mouth daily. 1 9 Active lisinopril-hydr ochlorothiazide 20-12.5 MG tablet Take 1 tablet by mouth daily. 1 9 Active albuterol sulfate HFA (PROAIR HFA) 108 (90 Base) MCG/ACT inhaler Inhale 2 puffs into the lungs every 4 (four) hours as needed for Shortness of breath. 1 Inhaler 9 Active benzonatate 200 MG capsule Take 1 capsule (200 mg total) by mouth 3 (three) times daily as needed for Cough. 15 capsule 9 Active umeclidinium-vi lanterol (ANORO ELLIPTA) 62.5-25 MCG/ACT inhaler Inhale 1 puff into the lungs. Active hydrALAZINE (APRESOLINE) 25 MG tablet Take 1 tablet (25 mg total) by mouth. Active tiotropium bromide-olodate rol (STIOLTO RESPIMAT) 2.5-2.5 MCG/ACT inhaler Inhale 2 puffs into the lungs daily. Active Active Problems Problem Noted Date Diagnosed Date Back pain, acute 11/28/2015 Otitis media 11/14/2015 Lip laceration 11/14/2015 History of recent fall 11/14/2015 High blood sugar 06/06/2015 History of lung cancer 02/08/2014 Asthma (HHS/HCC) 02/08/2014 Depression 12/28/2013 Muscle spasm 08/10/2013 Wheezing 06/15/2013 Other tobacco product nicotine dependence, uncom plicated 06/15/2013 Hypertension 04/07/2013 Hyperplastic colon polyp 04/07/2013 Hyperlipidemia 04/07/2013 Resolved Problems Problem Noted Date Diagnosed Date Resolved Date Encounter for screening mamm ogram for breast cancer 06/06/2015 12/03/2019 Encounter for preventive health examination 04/07/2013 12/03/2019 Immunizations Name Administration Dates Next Due Pneumococcal (Prevnar 13) 11/28/2015 Td (Tenivac) preservative free 11/15/2015 Family History Medical History Relation Comments Breast Cancer Neg Hx Social History Tobacco Use Types Packs/Day Years Used Date Smoking Tobacco: Every Day Cigarettes Smokeless Tobacco: Never Tobacco Cessation:Ready to Q uit: Not Asked; Counseling Given: Not Answered Comments No Sex and Gender Information Value Date Recorded Sex Assigned at Not on file Legal Sex Female 7:29 PM CDT Gender Identity Not on file Sexual Orientation Not on file Last Filed Vital Signs Vital Sign Reading Time Taken Comments Blood Pressure 162/84 09/23/2022 6:36 PM CDT Pulse 75 09/23/2022 6:36 PM CDT Temperature 36.5 ??C (97.7 ??F) 09/23/2022 6:36 PM CD T Respiratory Rate 18 09/23/2022 6:36 PM CDT Oxygen Saturation 96% 09/23/2022 6:36 PM CDT Inhaled Oxygen Concentration - - Weight 72.6 kg (160 lb) 09/23/2022 1:32 PM CDT Height 157.5 cm (5' 2 ) 09/23/2022 1:32 PM CDT Body Mass Index 29.26 09/23/2022 1:32 PM CDT Plan of Treatment Health Maintenance Due Date Last Done Comments Hepatitis C 07/28/1967 Zoster Vaccines (1 of 2) 07/28/1999 RSV Immunization or 60+ Years (1 - Risk 60-74 years 1-dose series) 2009 Annual Medicare Wellness Visit 2014 Dexa Scan (General) 2014 DTaP, Tdap and Td Vaccines (1 - Tdap) 11/16/2015 11/15/2015 Pneumococcal Vaccine: 65+ Years (2 of 2 - PPSV23 or PCV20) 01/23/2016 11/28/2015 Mammogram Screening 03/30/2022 03/30/2020, 02/22/2019, 02/05/2019, Additional history exists COVID-19 Vaccine ( - season) 2023 Influenza Adult (#1) 2023 12/29/2017 Colorectal Cancer Screening Colonoscopy (10 Years) 01/10/2030 01/11/2020, 12/23/2016 Meningococcal B Vaccine Aged Out No l onger eligible based on patient's age to complete this topic Meningococcal Vaccine Aged Out No nery juan eligible based on patient's age to complete this topic RSV Immunizations Under 20 Months Aged Out No longer eligible based on patient's age to complete this topic Procedures Procedure Name Priority Date/Time Associated Diagnosis Comments MG SCREENING W JESSE HELGA DIGI Routine 03/30/2020 11:21 AM FOREST MANAGER Visit for screening mammogram COLONOSCOPY GENERIC (SCAN ORDER) 01/11/2020 from Last 3 Months or Most Recently Relevant to Health Maintenance Results * MG SCREENING W JESSE HELGA DIGI (03/30/2020 11:21 AM FOREST MANAGER) Anatomical Region Laterality Modality Breast Bilateral Mammography 03/30/2020 12:1 5 PM FOREST MANAGER Narrative 03/30/2020 12:15 PM FOREST MANAGER EXAMINATION: MG SCREENING W JESSE HELGA DIGI WITH TOMOSYNTHESIS AND COMPUTER-AIDED DETECTION (CAD) DATE: 03/30/2020 11:00 AM COMPARISON STUDIES: ??02/05/2019, 08/20/2017, 07/20/2015, 04/21/2013. CLINICAL HISTORY: ??Visit for screening mammogram ?? . ? FINDINGS: Bilateral CC, MLO, 2-D and 3-D acquisitions. Scattered residual fibroglandular parenchyma . Similar in appearance and distribution to the previous exams. No evidence of dominant mass, architectural distortion, skin thickening, nipple retraction or suspicious clusters of microcalcifications. ??Benign calcifications redemonstrated. ? CONCLUSION: 1. ??BI-RADS Category 2 - benign findings. Annual screening mammography recommended. 2. ??TISSUE TYPE: Category B - There are areas of scattered fibroglandular density. MQSA BI-RADS Categories: Category 0 - needs additional imaging evaluation. Category 1 - negative. Category 2 - benign findings. Category 3 - probably benign findings, but short interval follow-up ?is recommended. Category 4 - suspicious abnormality and biopsy should be considered ?though the lesion may well be benign. Category 5 - highly suggestive of malignancy and appropriate action ?should be taken. ?? A) ??A negative report should not delay a biopsy if a dominant or ?clinically suspicious mass is present. B) ??Adenosis and dense breasts may obscure an underlying neoplasm. C) ??Study interpreted with computer aided detection. Voice recognition software utilized. Interpreted By: Basilio Rivera, 03/30/2020 12:15 PM us Nhi Islas MD MAMMO Final Resu lt * COLONOSCOPY GENERIC (01/11/2020) 01/11/2020 Narrative 01/11/2020 Ordered by an unspecified provider. us Documents Scanned SCANNING Final Result from Last 3 Months or Most Recently Relevant to Health Maintenance Insurance [facility] Care Teams [place] Worker Relationship Specialty Start Date End Date Nhi Islas MD [address] [facility] [address] [place] [address] PCP - General FAMILY PRACTICE 02/05/19
[2024-04-19 16:27] LABS: Basophils Absolute Auto 0.1 K/mm3 (0.0-0.1); Basophils Percent Auto 0.7 % (0.2-1.2); Eosinophils Absolute Auto 0.1 K/mm3 (0-0.3); Eosinophils Percent Auto 1.3 % (0-4.4); Hematocrit 46.3 % (37.0-47.0); Hemoglobin 14.8 g/dL (12.0-15.0); Immature Granulocyte Absolute 0.02 K/mm3 (0.00-0.031); Immature Granulocyte Percent A 0.2 % (0-0.5); Lymphocytes Absolute Auto 3.43 K/mm3 (0.9-3.2); Lymphocytes Percent Auto 39.4 % (18.3-44.2); Mean Corpuscular Hemoglobin 31.4 pg (26-34); Mean Corpuscular Volume 98.1 fl (80-100); Mean Platelet Volume 9.2 fl (7.4-10.4); Monocytes Absolute Auto 0.6 K/mm3 (0.1-0.6); Monocytes Percent Auto 6.7 % (2.6-8.5); Neutrophils Absolute Auto 4.5 K/mm3 (1.3-6.7); Neutrophils Percent Auto 51.7 % (45.5-73.1); Platelet Count Result 234 k/mm3 (150-375); Red Blood Count 4.72 M/mm3 (4.2-5.4); Red Cell Distribution Width 14.5 % (11.5-14.5); White Blood Count 8.7 K/mm3 (4.5-10.0)
[2024-04-19 16:37] LABS: Alanine Aminotransferase 30 U/L (6-35); Albumin Level 4.6 g/dL (3.5-5.1); Alkaline Phosphatase 88 U/L (38-126); Anion Gap 9 mmol/L (4-12); Aspartate Amino Transferase 57 U/L (14-36); Bilirubin,Total 0.6 mg/dL (0.2-1.3); Blood Urea Nitrogen 19 mg/dL (7-17); Calcium 9.2 mg/dL (8.4-10.2); Carbon Dioxide 29 mmol/L (22-30); Chloride 104 mmol/L (98-107); Estimated Glomerular Filt Rate > 60; Glucose 95 mg/dL (65-110); Magnesium 1.9 mg/dL (1.6-2.3); Potassium 3.8 mmol/L (3.4-5.0); Sodium 142 mmol/L (137-145)
[2024-04-19 17:38] LABS: Folic Acid 7.4 ng/mL (2.76->20)
== END 2024-04-19 12:37 | disposition home or self-care (01) ==
LOC: ANHGOSHLAB 12:38
PROVIDERS: PCP Internal Medicine; Visit Provider Internal Medicine
DX: D64.9 Anemia, unspecified (principal); Z85.118 Personal history of other malignant neoplasm of bronchus and lung; D50.9 Iron deficiency anemia, unspecified; E87.6 Hypokalemia
CPT/HCPCS: 36415; 80053; 82607; 82728; 82746; 83735; 85025

== ENCOUNTER 2024-07-26 09:39 | Outpatient (CLI) | payer MEDICARE, SELFPAY ==
--- OUTSIDE RECORDS SUMMARY | 2024-07-26 10:22 | XMS_ITS | Clinical Summary ---
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 0 11/30/19 19 Active fluoxetine 20 MG capsule Take 1 capsule (20 mg total) by mouth daily. 1 11/30/19 19 Active albuterol sulfate HFA (PROAIR HFA) 108 (90 Base) MCG/ACT inhaler Inhale 2 puffs into the lungs every 4 (four) hours as needed for Shortness of breath. 1 Inhaler 02/07/20 19 Active amLODIPine (NORVASC) 5 MG tablet Take 1 tablet (5 mg total) by mouth nightly at bedtime. 04/14/19 25 Active TRELEGY ELLIPTA 100-62.5-25 MCG/ACT AEROSOL POWDER, BREATH ACTIVATED Take 1 Inhalation by mouth daily. 04/01/19 25 Active Irbesartan-hydroCH LOROthiazide 300-12.5 MG Tab Take 1 tablet by mouth daily. 06/15/19 25 Active ondansetron (ZOFRAN-ODT) 4 MG disintegrating tablet Take 1 tablet (4 mg total) by mouth every 8 (eight) hours as needed for Nausea. 20 tablet 06/21/19 25 Active HYDROcodone-acetam inophen (NORCO) 5-325 MG tabletIndications: Acute Pain < 7 Day Supply Take 1 tablet by mouth every 6 (six) hours as needed for Pain. Indications: Acute Pain < 7 Day Supply 28 tablet 06/21/19 25 Active levoFLOXacin (LEVAQUIN) 750 MG tablet Take 1 tablet (750 mg total) by mouth daily for 10 days. 10 tablet 06/21/19 25 025 metroNIDAZOLE (FLAGYL) 500 MG tablet Take 1 tablet (500 mg total) by mouth 3 (three) times daily for 10 days. 30 tablet 06/21/19 025 simethicone (MYLICON) 80 MG chewable tablet Chew 1 tablet (80 mg total) by mouth 4 (four) times daily for 10 days. 30 tablet 06/21/19 025 Active Problems Problem Noted Date Diagnosed Date Diverticulitis of large inte michelle without perforation or abscess 06/15/2024 Diverticulitis 06/14/2024 Back pain, acute 11/28/2015 Otitis media 11/14/2015 Lip laceration 11/14/2015 History of recent fall 11/14/2015 High blood sugar 06/06/2015 History of lung cancer 02/08/2014 Asthma ([facility]) 02/08/2014 Depression 12/28/2013 Muscle spasm 08/10/2013 Wheezing 06/15/2013 Other tobacco product nicotine dependence, uncom plicated 06/15/2013 Hypertension 04/07/2013 Hyperplastic colon polyp 04/07/2013 Hyperlipidemia 04/07/2013 Resolved Problems Problem Noted Date Diagnosed Date Resolved Date Encounter for screening mamm ogram for breast cancer 06/06/2015 12/03/2019 Encounter for preventive health examination 04/07/2013 12/03/2019 Encounters Date Type Department Care Team Description 07/06/2024 Telephone [facility] [address] [place] [address] Mine Aguilar, RN Follow Up Call (No answer, left VM) 06/16/2024 Travel 06/14/2024 5:07 PM CDT - 06/20/2024 12:20 PM CDT Hospital Encounter [facility] [address] [place], [place] [id number] Artis, Camryn D, MD CatholicMalcolm peres MD Harris, Michael, MD Helmholt, Jennifer, NP Mahtani, Andrew, MD Abdominal Pain Discharge Disposition: Home or Self Care (Routine Discharge) 06/14/2024 Travel from Last 3 Months Immunizations Immunization Administration Dates Next Due Pneumococcal (Prevnar 13) 11/28/2015 Td (Tenivac) preservative free 11/15/2015 Family History Medical History Relation Comments Breast Cancer Neg Hx Social History Tobacco Use Types Packs/Day Years Used Date Smoking Tobacco: Every Day Cigarettes Smokeless Tobacco: Never Tobacco Cessation:Ready to Q uit: Not Asked; Counseling Given: Not Answered [facility] Desecuritrexities Answer Date Recorded In the past 12 months has th e [employer], gas, oil, or water company threatened to shut off services in your home? No 06/14/2024 Humiliation, Afraid, Rape, and Kick questionnair e Answer Date Recorded Within the last year, have y ou been afraid of your partner or ex-partner? No 06/14/2024 Within the last year, have y ou been humiliated or emotionally abused in other ways by your partner or ex-partner? No Within the last year, have y ou been kicked, hit, slapped, or otherwise physically hurt by your partner or ex-partner? No 06/14/2024 Within the last year, have y ou been raped or forced to have any kind of sexual activity by your partner or ex-partner? No 06/14/2024 Overall Financial Resource Strain (CARDIA) Answe r Date Recorded How hard is it for you to pa y for the very basics like food, housing, medical care, and heating? Not hard at all 06/14/2024 Hunger Vital Sign Answer Date Recorded Within the past 12 months, y ou worried that your food would run out before you got the money to buy more. Never true 06/15/19 25 Within the past 12 months, t he food you bought just didn't last and you didn't have money to get more. Never true 06/14/2024 PRAPARE - Transportation Answer Date Re corded In the past 12 months, has l ack of transportation kept you from medical appointments or from getting medications? No 05/23 In the past 12 months, has l ack of transportation kept you from meetings, work, or from getting things needed for daily living? No 06/14/2024 Housing Stability Vital Sign Answer Aung e Recorded In the last 12 months, was t here a time when you were not able to pay the mortgage or rent on time? No 06/14/2024 In the past 12 months, how m any times have you moved where you were living? 0 06/14/2024 [facility] or living in a [facility] (including now)? No 06/14/2024 Comments No Sex and Gender Information Value Date Recorded Sex Assigned at Female 06/14/2024 4:35 PM CDT Legal Sex Female 7:29 PM CDT Gender Identity Not on file Sexual Orientation Not on file Last Filed Vital Signs Vital Sign Reading Time Taken Comments Blood Pressure 150/64 06/20/2024 11:37 AM CDT Pulse 75 06/20/2024 11:37 AM CDT Temperature 36.7 C (98 F) 06/20/2024 11:37 AM CDT Respiratory Rate 18 06/20/2024 11:37 AM CDT Oxygen Saturation 93% 06/20/2024 11:37 AM CDT Inhaled Oxygen Concentration - - Weight 70.8 kg (156 lb 1.4 oz) 06/19/2024 4:37 A M CDT Height 157.5 cm (5' 2 ) 06/14/2024 9:16 PM CDT Body Mass Index 28.55 06/14/2024 9:16 PM CDT Plan of Treatment Health Maintenance Due Date Last Done Comments Hepatitis C 07/28/1967 Zoster Vaccines (1 of 2) 07/28/1999 RSV Immunization or 60+ Years (1 - Risk 60-74 years 1-dose series) 2009 Annual Medicare Wellness Visit 2014 Dexa Scan (General) 2014 DTaP, Tdap and Td Vaccines (1 - Tdap) 11/16/2015 11/15/2015 Pneumococcal Vaccine: 50+ Years (2 of 2 - PPSV23) 01/23/2016 11/28/2015 Mammogram Screening 03/30/2022 03/30/2020, 02/22/2019, 02/05/2019, Additional history exists COVID-19 Vaccine (1 - 2023- season) 2023 Colorectal Cancer Screening Colonoscopy (10 Years) 01/10/2030 01/11/2020, 12/23/2016 Meningococcal B Vaccine Aged Out No l onger eligible based on patient's age to complete this topic Meningococcal Vaccine Aged Out No nery juan eligible based on patient's age to complete this topic RSV Immunizations Under 20 Months Aged Out No longer eligible based on patient's age to complete this topic Goals Goal Patient Goal Type Associated Problems Recent Progress Patient-Stated? Author Patient will return to prior living situation and remain independent in ADLs upon discharge from hospital Lifestyle No Tabitha Reid RN Procedures Procedure Name Priority Date/Time Associated Diagnosis Comments BASIC METABOLIC PANEL Routine 06/20/2024 7:55 AM CDT CBC W/DIFF AUTOMATED Routine 06/20/2024 7:55 AM CDT BASIC METABOLIC PANEL Routine 06/19/2024 8:20 AM CDT CBC W/DIFF AUTOMATED Routine 06/19/2024 8:[address] CHEST WO CON Today 06/18/2024 9:[address] ABD+PEL WO CON STAT 06/18/2024 9:1 1 AM CDT LACTIC ACID STAT 06/18/2024 8:43 AM CDT MAGNESIUM Routine 06/18/2024 6:21 AM CDT BASIC METABOLIC PANEL Routine 06/18/2024 6:21 AM CDT CBC W/DIFF AUTOMATED Routine 06/18/2024 6:21 AM CDT XR ABD 2 VIEW STAT 06/17/2024 2:09 PM CDT CBC W/DIFF AUTOMATED Routine 06/16/2024 3:55 PM CDT URINALYSIS, AUTO, COMPLETE STAT 06/15/2024 2:30 PM CDT MAGNESIUM Routine 06/15/2024 6:02 AM CDT COMPREHENSIVE METABOLIC PANEL Routine 06/15/2024 6:02 AM CDT PARTIAL THROMBOPLASTIN TIME,PTT Routine 06/15/2024 6:02 AM CDT PROTHROMBIN TIME, VENOUS Routine 06/15/2024 6:02 AM CDT CBC W/DIFF AUTOMATED Routine 06/15/2024 6:[address] ABD+PEL WO CON STAT 06/14/2024 5:2 1 PM CDT LACTIC ACID W REFLEX (SEPSIS) STAT 06/14/2024 5:08 PM CDT LIPASE STAT 06/14/2024 5:08 PM CDT COMPREHENSIVE METABOLIC PANEL STAT 06/14/2024 5:08 PM CDT CBC W/DIFF AUTOMATED STAT 06/14/2024 5:08 PM CDT MG SCREENING W JESSE HELGA DIGI Routine 03/30/2020 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 GLUCOSE 105(H) 70 - 99 MG/DL 06/20/2024 9:25 AM CDT [facility] BUN 6(L) 7 - 18 MG/DL 06/20/2024 9:25 AM CDT [facility] CREATININE S/P/B 0.59 0.55 - 1.02 MG/DL 06/20/2024 9:25 AM CDT [facility] SODIUM S/P/B 142 136 - 145 MMOL/L 06/20/2024 9:25 AM T [facility] POTASSIUM S/P/B 3.4(L) 3.5 - 5.1 MMOL/L 06/20/2024 9:25 AM T [facility] CHLORIDE S/P/B 104 100 - 108 MMOL/L 06/20/2024 9:25 AM T [facility] CO2 26.2 21 - 32 MMOL/L 06/20/2024 9:25 AM [facility] CALCIUM S/P/B 8.9 8.5 - 10.1 MG/DL 06/20/2024 9:25 AM [facility] ANION GAP 11.8 5 - 15 MMOL/L 06/20/2024 9:25 AM [facility] BUN CREATININE RATIO 10.2 6 - 26 06/20/2024 9:25 AM [facility] GFR ESTIMATE >90 >90 ML/MIN/1.7 3 M2 06/20/2024 9:25 AM T [facility] Comment: NOTE: eGFR is not calculated for patients <18 years of age. This is an estimated GFR calculation using the new CKD EPI creatinine equation without race and so does not require a correction factor for race. This estimated GFR should not be used for calculating drug doses. 06/20/2024 7:55 AM CDT us Bridget Collins MD LABORATORY Final Result [facility] [address] [place] [address], [place] [phone] * (ABNORMAL) CBC W/DIFF AUTOMATED (06/20/2024 7:55 AM CDT) Only the most recent of6 resultswithin the time period is included. [facility] Signature WBC 10.48 4.4 - 11.0 x10'3/uL 06/20/2024 9:08 AM CDT [facility] RBC 3.83(L) 4.50 - 5.10 x10'6/uL 06/20/2024 9:08 AM CDT [facility] HGB 12.2(L) 12.3 - 15.3 G/DL 06/20/2024 9:08 AM T [facility] HCT 36.2 35.9 - 44.6 % 06/20/2024 9:08 AM CDT [facility] MCV 94.5 80.0 - 96.0 FL 06/20/2024 9:08 AM CDT [facility] MCH 31.9(H) 25.3 - 30.9 PG 06/20/2024 9:08 AM CDT [facility] MCHC 33.7 31.0 - 34.1 G/DL 06/20/2024 9:08 AM T [facility] RDW 15.0 12.4 - 15.1 % 06/20/2024 9:08 AM T [facility] PLT 270 151 - 353 x10'3/uL 06/20/2024 9:08 AM CDT [facility] MPV 8.9(L) 9.6 - 12.0 FL 06/20/2024 9:08 AM T [facility] RBC MORPHOLOGY NORMAL 06/20/2024 9:08 AM CDT [facility] PLT MORPH. NORMAL 06/20/2024 9:08 AM CDT [facility] WBC MORPHOLOGY NORMAL 06/20/2024 9:08 AM CDT [facility] LYMPHOCYTES % 14.5(L) 15.8 - 45.0 % 06/20/2024 9:08 AM CDT [facility] NEUTROPHILS % 75.4(H) 42.1 - 71.9 % 06/20/2024 9:08 AM CDT [facility] MONOCYTES % 8.2 5.7 - 12.5 % 06/20/2024 9:08 AM CDT [facility] EOSINOPHILS 0.9 0.0 - 5.6 % 06/20/2024 9:08 AM CDT [facility] BASOPHILS 0.5 0.0 - 1.3 % 06/20/2024 9:08 AM CDT [facility] ABS. NEUTROPHILS 7.91(H) 1.40 - 6.00 x10'3/uL 06/20/2024 9:08 AM CDT [facility] IMMATURE GRANS % 0.5 0.0 - 0.5 % 06/20/2024 9:08 AM CDT [facility] ABS. LYMPHOCYTES 1.52 0.80 - 4.70 x10'3/uL 06/20/2024 9:08 AM CDT [facility] 06/20/2024 7:55 AM CDT us Bridget Collins MD LABORATORY Final Result [facility] [address] [place] [address], * CT CHEST WO CON (06/18/2024 9:11 AM CDT) Anatomical Region Laterality Modality Chest Computed Tomogra phy 06/18/2024 12:0 9 PM CDT Impressions 06/18/2024 12:49 PM CDT IMPRESSION: 1. 1.6 cm left lower lobe pulmonary nodule with partially solid and partially groundglass density, growing slowly in the interval since 09/20/2019. 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 2. Indeterminate postoperative changes favored to represent prior left lower lobe wedge resection/segmentectomy. Correlation with history is suggested. In light of a new suspected neoplasm in the same lobe, consider reconsultation with the patient's thoracic surgeon to determine next steps, potentially including PET-CT, percutaneous biopsy, or resection. Ordered By: BRIDGET COLLINS Interpreted By: Partha Sutherland MD, 06/18/2024 12:09 PM Narrative 06/18/2024 12:49 PM CDT [place] [id number] [facility]. [place] [id number] EXAM: NONCONTRAST CT CHEST INDICATION: Partially imaged pulmonary nodules on abdominal CT 06/14/2024 COMPARISON: Abdomen CT 06/14/2024. Last chest CT dated 09/20/2019 TECHNIQUE: Unenhanced multidetector CT is performed through the chest. Multiplanar images are created and reviewed. A dose lowering technique was used for this procedure, which may include, but is not limited to, dose reduction techniques, automated exposure control, the use of a iterative reconstruction, and ALARA (as low as reasonably achievable)/image gently techniques. FINDINGS: Heart: Heart size is normal. There is no pericardial effusion. Great vessels: Normal in caliber. Mediastinum and anat: No masses, abnormal fluid collections, or adenopathy are present. Calcifications and surgical clips are noted adjacent to the lower esophagus and left lower lobe bronchus, and may reflect prior wedge resection or segmentectomy of the left lower lobe. Pleura: There is no effusion, pneumothorax, or pleural mass. Lungs: In the posterior lateral left lower lobe, example series 3 image 66, there is a part solid, part groundglass pulmonary nodule with axial dimensions of 1.6 x 1.4 cm, solid component dimension of about 9 mm. This nodule was present in 2019 but much smaller, approximately 8 mm diameter. In the right lower lobe, series 3 image 56, there is a 4 mm pulmonary nodule unchanged since 2020 and therefore considered benign. There is minimal scarring or atelectasis in the right middle lobe as well as some unchanged round atelectasis in the more inferior left lower lobe. Upper abdomen: Limited evaluation of the upper abdominal organs shows no acute abnormality. There is a small calcification partially imaged in the right renal hilum which could reflect a nonobstructing calculus but might also be vascular calcification. Upper poles of the kidneys show no hydronephrosis. There is an inherently hyperdense hemorrhagic/proteinaceous cyst in the right upper pole, which requires no specific additional follow-up per ACR guidelines. Other: No destructive osseous lesion is identified. Procedure Note Partha Sutherland MD - 06/18/2024 [facility] [address] [place] [address] EXAM: NONCONTRAST CT CHEST INDICATION: Partially imaged pulmonary nodules on abdominal CT 06/14/2024 COMPARISON: Abdomen CT 06/14/2024. Last chest CT dated 09/20/2019 TECHNIQUE: Unenhanced multidetector CT is performed through the chest.Multiplanar images are created and reviewed. A dose lowering technique wasused for this procedure, which may include, but is not limited to, dosereduction techniques, automated exposure control, the use of a iterativereconstruction, and ALARA (as low as reasonably achievable)/image gentlytechniques. FINDINGS: Heart: Heart size is normal. There is no pericardial effusion. Great vessels: Normal in caliber. Mediastinum and anat: No masses, abnormal fluid collections, or adenopathyare present. Calcifications and surgical clips are noted adjacent to thelower esophagus and left lower lobe bronchus, and may reflect prior wedgeresection or segmentectomy of the left lower lobe. Pleura: There is no effusion, pneumothorax, or pleural mass. Lungs: In the posterior lateral left lower lobe, example series 3 image66, there is a part solid, part groundglass pulmonary nodule with axialdimensions of 1.6 x 1.4 cm, solid component dimension of about 9 mm. Thisnodule was present in 2020 but much smaller, approximately 8 mm diameter.In the right lower lobe, series 3 image 56, there is a 4 mm pulmonarynodule unchanged since 2020 and therefore considered benign. There isminimal scarring or atelectasis in the right middle lobe as well as someunchanged round atelectasis in the more inferior left lower lobe. Upper abdomen: Limited evaluation of the upper abdominal organs shows noacute abnormality. There is a small calcification partially imaged in theright renal hilum which could reflect a nonobstructing calculus but mightalso be vascular calcification. Upper poles of the kidneys show nohydronephrosis. There is an inherently hyperdensehemorrhagic/proteinaceous cyst in the right upper pole, which requires nospecific additional follow-up per ACR guidelines. Other: No destructive osseous lesion is identified. IMPRESSION: 1. 1.6 cm left lower lobe pulmonary nodule with partially solid andpartially groundglass density, growing slowly in the interval since09/20/2019. The appearance is most suggestive of minimally invasiveadenocarcinoma. 2. Indeterminate postoperative changes favored to represent prior leftlower lobe wedge resection/segmentectomy. Correlation with history issuggested. In light of a new suspected neoplasm in the same lobe, considerreconsultation with the patient's thoracic surgeon to determine nextsteps, potentially including PET-CT, percutaneous biopsy, or resection. Ordered By: BRIDGET COLLINS Interpreted By: Partha Sutherland MD, 06/18/2024 12:09 PM Bridget Collins MD CT Final Result * CT ABD+PEL WO CON (06/18/2024 9:11 AM CDT) Only the most recent of2 resultswithin the time period is included. Anatomical Region Laterality Modality Abdomen Computed Tomogra phy 06/18/2024 10:1 1 AM CDT Impressions 06/18/2024 10:47 AM CDT IMPRESSION: 1. Interval mild worsening of sigmoid diverticulitis. As detailed above. No abscess. 2. No free air. Small amount of free fluid in the pelvis.. 3. No bowel obstruction.. Probable small bowel reactive ileus without obstruction. Ordered By: BRIDGET COLLINS Interpreted By: Sirisha Saul, 06/18/2024 10:11 AM Narrative 06/18/2024 10:47 AM CDT [facility] [address] [place] [address] EXAMINATION: CT Abdomen and Pelvis without contrast EXAM DATE/TIME: 06/18/2024 8:53 AM REASON FOR EXAM: abd pain History of diverticulitis COMPARISON: 06/14/2024 TECHNIQUE: Axial imaging of the abdomen and pelvis was obtained without intravenous contrast. A dose lowering technique was used for this procedure, which may include, but is not limited to, dose reduction technique, automated exposure control, iterative reconstruction, ALARA (As Low As Reasonably Achievable), or Image Gently techniques. FINDINGS: Abdomen: Adrenal glands are unremarkable. Kidneys demonstrate no suspicious lesion or hydronephrosis. Bilateral punctate nonobstructing renal calculi. Stable 1.5 cm hyperechoic lesion in superior right kidney. May be hemorrhagic versus proteinaceous cyst. Minimal growth since prior CT chest of 09/20/2019. Measured 1 cm at that time. Most likely benign. Stomach and duodenum are unremarkable. Spleen is unremarkable. Cholecystectomy Pancreas grossly unremarkable. Hepatic parenchyma are within normal limits with no evidence of intrahepatic biliary dilatation or mass within the limitations of a noncontrast study. Fluid in nondilated small bowel most likely reactive ileus. Small amount of free fluid in the pelvis. No free air. Stable nonpathologic probable reactive periaortic lymph nodes. No evidence of an abdominal aortic aneurysm. Stable ectasia. Increase in mucosal prominence about the sigmoid diverticulitis with slight increase in adjacent fatty infiltration.. No abscess. No adjacent focal air collections. Proximal colon with scattered diverticuli without obstruction. Probable reactive liquid stool in portions of the colon. Appendix not inflamed. Pelvis: Uterus and adnexal regions without gross abnormality. Urinary bladder without abnormality. On bone windows, no evidence of suspicious skeletal lesion or acute compression fracture deformity. Degenerative change in lumbar spine with grade 1 anterior spondylolisthesis of L4 on L5. No pars defect. Severe spinal stenosis at this level. Please see same-day CT chest. Procedure Note Neo Saul MD - 06/18/2024 [facility] [address] [place] [address] EXAMINATION: CT Abdomen and Pelvis without contrast EXAM DATE/TIME: 06/18/2024 8:53 AM REASON FOR EXAM: abd pain History of diverticulitis COMPARISON: 06/14/2024 TECHNIQUE: Axial imaging of the abdomen and pelvis was obtained withoutintravenous contrast. A dose lowering technique was used for this procedure, which may include,but is not limited to, dose reduction technique, automated exposurecontrol, iterative reconstruction, ALARA (As Low As ReasonablyAchievable), or Image Gently techniques. FINDINGS: Abdomen: Adrenal glands are unremarkable. Kidneys demonstrate nosuspicious lesion or hydronephrosis. Bilateral punctate nonobstructingrenal calculi. Stable 1.5 cm hyperechoic lesion in superior right kidney.May be hemorrhagic versus proteinaceous cyst. Minimal growth since priorCT chest of 09/20/2019. Measured 1 cm at that time. Most likely benign. Stomach and duodenum are unremarkable. Spleen is unremarkable. Cholecystectomy Pancreas grossly unremarkable. Hepatic parenchyma are within normal limits with no evidence ofintrahepatic biliary dilatation or mass within the limitations of anoncontrast study. Fluid in nondilated small bowel most likely reactive ileus. Small amountof free fluid in the pelvis. No free air. Stable nonpathologic probable reactive periaortic lymph nodes. No evidence of an abdominal aortic aneurysm. Stable ectasia. Increase in mucosal prominence about the sigmoid diverticulitis withslight increase in adjacent fatty infiltration.. No abscess. No adjacentfocal air collections. Proximal colon with scattered diverticuli without obstruction. Probablereactive liquid stool in portions of the colon. Appendix not inflamed. Pelvis: Uterus and adnexal regions without gross abnormality. Urinarybladder without abnormality. On bone windows, no evidence of suspicious skeletal lesion or acutecompression fracture deformity. Degenerative change in lumbar spine withgrade 1 anterior spondylolisthesis of L4 on L5. No pars defect. Severespinal stenosis at this level. Please see same-day CT chest. IMPRESSION: 1. Interval mild worsening of sigmoid diverticulitis. As detailed above.No abscess. 2. No free air. Small amount of free fluid in the pelvis.. 3. No bowel obstruction.. Probable small bowel reactive ileus withoutobstruction. Ordered By: BRIDGET COLLINS Interpreted By: Sirisha Saul, 06/18/2024 10:11 AM Bridget Collins MD CT Final Result * LACTIC ACID (06/18/2024 8:43 AM CDT) LACTIC ACID VENOUS 0.8 0.4 - 2.0 MMOL/L 06/18/2024 9:17 AM CDT [facility] 06/18/2024 8:43 AM CDT Bridget Collins MD LABORATORY Final Result Performing Organization Address [facility] de Phone Number [facility] [address] [place] [address], [place] [phone] * (ABNORMAL) MAGNESIUM (06/18/2024 6:21 AM CDT) Only the most recent of2 resultswithin the time period is included. MAGNESIUM 1.6(L) 1.8 - 2.4 MG/DL 06/18/2024 8:43 AM CDT [facility] 06/18/2024 6:21 AM CDT Bridget Collins MD LABORATORY Final Result Performing Organization Address [facility] de Phone Number [facility] [address] [place] [address], [place] [phone] * XR ABD 2 VIEW (06/17/2024 2:09 PM CDT) Anatomical Region Laterality Modality Abdomen Radiographic Charlene ging 06/17/2024 2:19 PM CDT Impressions 06/17/2024 2:22 PM CDT IMPRESSION: Normal bowel gas pattern without definite obstruction. Previously fluid-filled opacified bowel loops however may be occult on present exam. Correlate clinically. Ordered By: BRIDGET COLLINS Interpreted By: Chris Frost MD, 06/17/2024 2:19 PM Narrative 06/17/2024 2:22 PM CDT [facility] [address] [place] [address] EXAMINATION: Abdomen 2 views EXAM DATE/TIME: 06/17/2024 1:05 PM REASON FOR EXAM: Pain COMPARISON: 06/14/2024 TECHNIQUE: Supine and upright films of the abdomen and supine view of the pelvis were obtained. FINDINGS: Bowel gas pattern appears normal. No pneumoperitoneum is present. Evidence of prior cholecystectomy is noted. Degenerative changes spine is noted. 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 Procedure Note Chris Frost MD - 06/17/2024 [facility] [address] [place] [address] EXAMINATION: Abdomen 2 views EXAM DATE/TIME: 06/17/2024 1:05 PM REASON FOR EXAM: Pain COMPARISON: 06/14/2024 TECHNIQUE: Supine and upright films of the abdomen and supine view of thepelvis were obtained. FINDINGS: Bowel gas pattern appears normal. No pneumoperitoneum ispresent. Evidence of prior cholecystectomy is noted. Degenerative changesspine is noted. 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 IMPRESSION: Normal bowel gas pattern without definite obstruction. Previouslyfluid-filled opacified bowel loops however may be occult on present exam.Correlate clinically. Ordered By: BRIDGET COLLINS Interpreted By: Chris Frost MD, 06/17/2024 2:19 PM Bridget Collins MD GENERAL IMAGING Final Result * (ABNORMAL) URINALYSIS, AUTO, COMPLETE (06/15/2024 2:30 PM CDT) COLOR (U) YELLOW 06/15/2024 2:46 PM CDT [facility] TRANSPARENCY HAZY 06/15/2024 2:46 PM CDT [facility] SPECIFIC GRAVITY (U) >1.030(H) 1.000 - 1.030 06/15/2024 2:46 PM CDT [facility] U PH 6.0 5.0 - 9.0 06/15/2024 2:46 PM CDT [facility] LEUKOCYTES (U) 1+(A) NEGATIVE 06/15/2024 2:46 PM CDT [facility] NITRITES NEGATIVE NEGATIVE 06/15/2024 2:46 PM CDT [facility] PROTEIN RANDOM (U) NEGATIVE NEGATIVE 06/15/2024 2:46 PM CDT [facility] GLUCOSE (U) NEGATIVE NEGATIVE 06/15/2024 2:46 PM CDT [facility] KETONES MG/DL (U) 1+(A) NEGATIVE 06/15/2024 2:46 PM CDT [facility] BILIRUBIN (U) NEGATIVE NEGATIVE 06/15/2024 2:46 PM CDT [facility] BLOOD (U) 2+(A) NEGATIVE 06/15/2024 2:46 PM CDT [facility] WBC/HPF 5-10 0 - 5 /HPF 06/15/2024 2:46 PM CDT [facility] RBC/HPF 5-10 0 - 5 /HPF 06/15/2024 2:46 PM CDT [facility] EPI/HPF FEW /HPF 06/15/2024 2:46 PM CDT [facility] URINE SPECIMEN OBTAINED BY CLEAN CATCH PROCEDURE / Unknown 06/15/2024 2:30 PM CDT us Camryn Artis MD URINE ORDERABLES Final Result [facility] [address] [place] [address], [place] [phone] * (ABNORMAL) PARTIAL THROMBOPLASTIN TIME,PTT (06/15/2024 6:02 AM CDT) PTT 38.5(H) 27.0 - 36.8 SEC 06/15/2024 7:08 AM CDT [facility] 06/15/2024 6:02 AM CDT us Malcolm Hutner MD LABORATORY Final Result Performing Organization Address City/[facility]/ZIP Co de Phone Number [facility] [address] [place] [address], [place] [phone] * (ABNORMAL) PROTHROMBIN TIME, VENOUS (06/15/2024 6:02 AM CDT) Pathologist [facility] PROTIME 14.7(H) 9.1 - 12.4 SEC 06/15/2024 7:08 AM CDT [facility] INR 1.3 06/15/2024 7:08 AM CDT [facility] Comment: Recommend INR ranges for Oral Anticoagulant Therapy: Mechanical Cardiac Values 2.5-3.5 All others indication 2.0-3.0 06/15/2024 6:02 AM CDT us Malcolm Hunter MD LABORATORY Final Result [facility] [address] [place] [address], [place] [phone] * (ABNORMAL) COMPREHENSIVE METABOLIC PANEL (06/15/2024 6:02 AM CDT) Only the most recent of2 resultswithin the time period is included. GLUCOSE 119(H) 70 - 99 MG/DL 06/15/2024 7:22 AM CDT [facility] BUN 12 7 - 18 MG/DL 06/15/2024 7:22 AM T [facility] CREATININE S/P/B 0.80 0.55 - 1.02 MG/DL 06/15/2024 7:22 AM [facility] SODIUM S/P/B 140 136 - 145 MMOL/L 06/15/2024 7:22 AM T [facility] POTASSIUM S/P/B 3.6 3.5 - 5.1 MMOL/L 06/15/2024 7:22 AM [facility] CHLORIDE S/P/B 105 100 - 108 MMOL/L 06/15/2024 7:22 AM [facility] CO2 25.6 21 - 32 MMOL/L 06/15/2024 7:22 AM [facility] CALCIUM S/P/B 8.1(L) 8.5 - 10.1 MG/DL 06/15/2024 7:22 AM [facility] BILIRUBIN TOTAL S/P/B 1.1 0.2 - 1.2 MG/DL 06/15/2024 7:22 AM [facility] TOTAL PROTEIN S/P/B 6.6 6.4 - 8.2 G/DL 06/15/2024 7:22 AM [facility] ALBUMIN S/P/B 3.3(L) 3.4 - 5.0 G/DL 06/15/2024 7:22 AM [facility] AST 15 15 - 37 U/L 06/15/2024 7:22 AM [facility] ALT 18 14 - 55 U/L 06/15/2024 7:22 AM [facility] ALKALINE PHOSPHATASE S/P/B 79 50 - 136 U/L 06/15/2024 7:22 AM CDT [facility] ANION GAP 9.4 5 - 15 MMOL/L 06/15/2024 7:22 AM CDT [facility] BUN CREATININE RATIO 15.0 6 - 26 06/15/2024 7:22 AM T [facility] A/G RATIO 1.0 1.0 - 2.0 RATIO 06/15/2024 7:22 AM T [facility] GFR ESTIMATE 77(L) >90 ML/MIN/1.7 3 M2 06/15/2024 7:22 AM T [facility] Comment: NOTE: eGFR is not calculated for patients <18 years of age. This is an estimated GFR calculation using the new CKD EPI creatinine equation without race and so does not require a correction factor for race. This estimated GFR should not be used for calculating drug doses. 06/15/2024 6:02 AM CDT Malcolm Hunter MD LABORATORY Final Result [facility] [address] [place] [address], * LACTIC ACID W REFLEX (SEPSIS) (06/14/2024 5:08 PM CDT) LACTIC ACID VENOUS 1.6 0.4 - 2.0 MMOL/L 06/14/2024 5:35 PM CDT [facility] 06/14/2024 5:08 PM CDT Camryn Artis MD LABORATORY Final Result [facility] [address] [place] [address], [place] [phone] * LIPASE (06/14/2024 5:08 PM CDT) LIPASE 26 16 - 77 UNITS/L 06/14/2024 5:33 PM CDT [facility] 06/14/2024 5:08 PM CDT Camryn Artis MD LABORATORY Final Result [facility] [address] [place] [address], * MG SCREENING W JESSE HELGA DIGI (03/30/2020 11:21 AM 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 CLINICAL HISTORY: Visit for screening mammogram . FINDINGS: Bilateral CC, MLO, 2-D and 3-D acquisitions. Scattered residual fibroglandular parenchyma . Similar in appearance and distribution to the previous exams. No evidence of dominant mass, architectural distortion, skin thickening, nipple retraction or suspicious clusters of microcalcifications. Benign calcifications redemonstrated. CONCLUSION: 1. BI-RADS Category 2 - benign findings. Annual screening mammography recommended. 2. TISSUE TYPE: Category B - There are areas of scattered fibroglandular density. MQSA BI-RADS Categories: Category 0 - needs additional imaging evaluation. Category 1 - negative. Category 2 - benign findings. Category 3 - probably benign findings, but short interval follow-up is recommended. Category 4 - suspicious abnormality and biopsy should be considered though the lesion may well be benign. Category 5 - highly suggestive of malignancy and appropriate action should be taken. A) A negative report should not delay a biopsy if a dominant or clinically suspicious mass is present. B) Adenosis and dense breasts may obscure an underlying neoplasm. C) Study interpreted with computer aided detection. Voice recognition software utilized. Interpreted By: Basilio Rivera, 03/30/2020 12:15 PM us Nhi Islas MD MAMMO Final Resu lt * COLONOSCOPY GENERIC (01/11/2020) 01/11/2020 Narrative 01/11/2020 Ordered by an unspecified provider. us Documents Scanned SCANNING Final Result from Last 3 Months or Most Recently Relevant to Health Maintenance Insurance [employer] Advance Directives * Full Code (Latest Code Status on File) Date Activated Date Inactivated Comments 06/14/2024 9:38 PM 06/20/2024 2:25 PM Care Teams [employer] Relationship Specialty Start Date End Date Gilson Quinonez DO [address] [facility] [address] [place] [phone] PCP - General INTERNAL MEDICINE 06/14/24
[2024-07-26 12:38] LABS: Basophils Absolute Auto 0.1 K/mm3 (0.0-0.1); Basophils Percent Auto 0.8 % (0.2-1.2); Eosinophils Absolute Auto 0.1 K/mm3 (0-0.3); Eosinophils Percent Auto 1.3 % (0-4.4); Hematocrit 46.1 % (37.0-47.0); Hemoglobin 14.5 g/dL (12.0-15.0); Immature Granulocyte Absolute 0.01 K/mm3 (0.00-0.031); Immature Granulocyte Percent A 0.2 % (0-0.5); Lymphocytes Absolute Auto 2.13 K/mm3 (0.9-3.2); Lymphocytes Percent Auto 35.4 % (18.3-44.2); Mean Corpuscular HGB Conc 31.5 g/dl (32-36); Mean Corpuscular Hemoglobin 31.3 pg (26-34); Mean Corpuscular Volume 99.4 fl (80-100); Mean Platelet Volume 9.6 fl (7.4-10.4); Monocytes Absolute Auto 0.5 K/mm3 (0.1-0.6); Monocytes Percent Auto 7.5 % (2.6-8.5); Neutrophils Absolute Auto 3.3 K/mm3 (1.3-6.7); Neutrophils Percent Auto 54.8 % (45.5-73.1); Platelet Count Result 210 k/mm3 (150-375); Red Blood Count 4.64 M/mm3 (4.2-5.4)
[2024-07-26 12:59] LABS: Alanine Aminotransferase 28 U/L (6-35); Albumin Level 4.5 g/dL (3.5-5.1); Alkaline Phosphatase 87 U/L (38-126); Aspartate Amino Transferase 43 U/L (14-36); Bilirubin,Total 0.7 mg/dL (0.2-1.3)
== END 2024-07-26 09:40 | disposition home or self-care (01) ==
LOC: ANHGOSHLAB 09:41
PROVIDERS: PCP Internal Medicine; Visit Provider Clinical Nurse Specialist
DX: R74.8 Abnormal levels of other serum enzymes (principal); D50.9 Iron deficiency anemia, unspecified
CPT/HCPCS: 36415; 80076; 85025

== ENCOUNTER 2024-08-10 01:13 | Day surgery (SDC) | payer MEDICARE, SELFPAY ==
[2024-08-03 11:30] VITALS: BMI 26.7
--- OUTSIDE RECORDS SUMMARY | 2024-08-10 01:16 | XMS_ITS | Clinical Summary ---
Author Organization [facility] 2 Address [address] [facility] [place] [address] Care Team Providers Care Morning News Producer Name Role Phone Caden Flanagan MD Primary Care Provider Allergies Active Allergy Reactions Criticality Noted Date Comments Iodinated Contrast Media Anaphylaxis,Oth er (See comments) High 01/11/2020 Reaction: Iodine Rash,Unknown Medium 04/07/2013 Meperidine Vomiting,Nausea And Vomiting Low 01/11/2020 Penicillins Prochlorperazine Anaphylaxis High 07/28/2024 Tiotropium-Olodaterol Other (See comments) 05/2022 Medications FLUoxetine (PROzac) 40 mg capsule Take 1 capsule (40 mg total) by mouth daily Active atorvastatin (LIPITOR) 40 mg tablet Take 1 tablet (40 mg total) by mouth daily Active ALBUTEROL, BULK, MISC Active albuterol HFA (PROVENTIL HFA,VENTOLIN HFA,PROAIR HFA) 90 mcg/actuation inhaler Inhale 2 puffs every 4 (four) hours as needed 9 Active amLODIPine (NORVASC) 5 mg tablet Take 1 tablet (5 mg total) by mouth nightly Active ezetimibe (ZETIA) 10 mg tablet Take 1 tablet (10 mg total) by mouth daily 5 Active fluticasone-ume clidin-vilanter (Trelegy Ellipta) 100-62.5-25 mcg inhaler Take 1 puff by mouth daily 3 Active irbesartan-hydr oCHLOROthiazide (AVALIDE) 300-12.5 mg per tablet Take 1 tablet by mouth daily 3 Active ketorolac (ACULAR) 0.5 % ophthalmic solution 5 Active ofloxacin (OCUFLOX) 0.3 % ophthalmic solution 5 Active hydroCHLOROthia zide (MICROZIDE) 12.5 mg capsule Take 12.5 mg by mouth daily 07/29/19 25 Discontinu ed(Therapy completed) Active Problems Problem Noted Date Diagnosed Date Pulmonary nodule, left 07/23/2024 History of colon polyps 12/14/2019 Overview (12/14/2019): Added automatically from request for surgery [id number] Encounters Date Type Department Care Team Description 07/28/2024 2:45 PM CDT Office Visit [facility] Surgery [address] [place] [address] 5 [place] [phone] Gorge Vallecillo MD Pulmonary nodule, left (Primary Dx); Lung nodules 07/28/2024 Telephone [facility] Cardiothoracic Surgery [address] [place] [address] for Advanced Medicine 8th Floor [address] Room [address] [phone] Gorge Vallecillo MD Scheduling Appointments 2024 3:50 PM CDT - 2024 11:59 PM CDT Hospital Encounter [facility] [address] [place] [address] Diagnosis unknown Discharge Disposition: Discharge to home or self care 07/26/2024 10:30 AM CDT - 07/26/2024 11:59 PM CDT Hospital Encounter [facility]) [address] [place] [address] Discharge Disposition: Discharge to home or self care 07/26/2024 Orders Only [facility] Surgery [address] [place] [address] 5 [place] [phone] Leisa Merrill NP Pulmonary nodule, left (Primary Dx) 07/14/2024 Orders Only [facility] Surgery [address] [place] [address] 5 [place] [phone] Mervat Billy, RACHELLE Lung nodules (Primary Dx) from Last 3 Months Surgical History Surgery Date Site/Laterality Comments COLONOSCOPY CHOLECYSTECTOMY 03/24/1995 - 03/23/1996 LUNG LOBECTOMY 03/24/1995 - 03/23/1996 lower left lobe Medical History Medical History Date Comments Lung cancer (HCC) Skin cancer HTN (hypertension) High cholesterol ASHWIN (acute kidney injury) Covid-19 Cataract Claudication Sciatica of left side Tobacco abuse Postmenopausal Iron deficiency anemia History of lung cancer Major depressive disorder, recurrent, moderate ( HCC) Nicotine dependence Coronary atherosclerosis due to calcified hsieh ry lesion Colon polyposis Pulmonary nodule Basal cell carcinoma of clavicular area SCC (squamous cell carcinoma), shoulder Social History Tobacco Use Types Packs/Day Years Used Date Smoking Tobacco: Every Day Cigarettes Comments No Sex and Gender Information Value Date Recorded Sex Assigned at Not on file 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 Gender Identity Not on file Sexual Orientation Not on file Obstetrics History Last Filed Vital Signs Vital Sign Reading Time Taken Comments Blood Pressure 148/77 07/28/2024 2:08 PM CDT Pulse 86 07/28/2024 2:08 PM CDT Temperature 36.5 C (97.7 F) 07/28/2024 2:08 PM CDT Respiratory Rate 18 07/28/2024 2:08 PM CDT Oxygen Saturation 95% 07/28/2024 2:08 PM CDT Inhaled Oxygen Concentration - - Weight 67.4 kg (148 lb 9.6 oz) 07/28/2024 2:08 P M CDT Height 157.2 cm (5' 1.89 ) 07/28/2024 2:08 PM CD T Body Mass Index 27.28 07/28/2024 2:08 PM CDT Plan of Treatment Health Maintenance Due Date Last Done Comments Depression Screening 1950 Hepatitis C Screening 1950 Osteoporosis Screening-Bone Density Scan 1950 Hepatitis B Screening 07/28/1967 Zoster Vaccine (1 of 2) 07/28/1999 Well Visit 65+ 2014 DTaP/Tdap/Td Vaccine (1 - Tdap) 11/16/2015 6 Pneumococcal vaccine 65+ (2 of 2 - PPSV23) 01/23/2016 11/28/2015 Fall Risk Assessment 01/10/2021 01/11/2020 Covid-19 Vaccine (4 - 2023-2 5 season) 2024 12/09/2023, 01/17/2021, 05/30/2020 Colon Cancer Screening-Colonoscopy 01/10/2030 01/11/2020, 12/23/2016, 01/05/2016, Additional history exists Colon Cancer Screening-CT Colonography Discontinued 01/11/2020, 12/23/2016, 01/05/2016, Additional history exists Colon Cancer Screening-DNA Stool Discontinued 01/11/2020, 12/23/2016, 01/05/2016, Additional history exists Colon Cancer Screening-FIT Discontinued 01/10, 12/23/2016, 01/05/2016, Additional history exists Colon Cancer Screening-Sigmoidoscopy Discontinued 01/11/2020, 12/23/2016, 01/05/2016, Additional history exists Breast Cancer Screening-Mammogram Discontinued 03/30/2020, 03/30/2020, 02/05/2019 Influenza Vaccine Completed 12/09/2023, , 12/29/2017, Additional history exists Procedures Procedure Name Priority Date/Time Associated Diagnosis Comments CT BODY OUTSIDE CONSULT Routine 2024 3:50 PM CDT Diagnosis unknown CT BODY OUTSIDE REFERENCE Routine 07/26/2024 10:30 AM CDT COLONOSCOPY 01/11/2020 10:24 AM CDT from Last 3 Months or Most Recently Relevant to Health Maintenance Results * CT Body Outside Consult (2024 3:50 PM CDT) Anatomical Region Laterality Modality Body N/A Computed Tomogra phy 07/28/2024 9:24 AM CDT Impressions 07/28/2024 3:17 PM CDT 1. Changes of prior left lower lobectomy with stable 1.6 cm part solid-part groundglass spiculated nodule in the inferior and posterior left upper lobe suspicious for adenocarcinoma spectrum lesion. 2. Stable indeterminate 0.5 cm right lower lobe nodule. The findings, conclusions and recommendations within this report do not replace the initial findings, conclusions and recommendations made at the facility where the study was performed based upon the imaging and clinical condition at that time. Comparison with the prior report and clinical history is necessary. The provided images may or may not represent the [place] source data set and thus may contain changes that may lower the accuracy of this second-opinion interpretation. Dictated by: Lui Navarro MD The radiology attending physician has personally reviewed this study, and had reviewed and/or edited this written report and agrees with it. Electronically signed by: Bee Chavez M.D. Narrative 07/28/2024 3:17 PM CDT EXAMINATION: RADIOLOGY CONSULTATION ON OUTSIDE IMAGING STUDY STUDY INITIALLY PERFORMED: 06/10/2024 at [facility]. TYPE OF STUDY: Multiple CT images of the chest without intravenous contrast are provided at the time of this interpretation. CONTRAST ROUTE: No contrast was administered. The protocol was adequate to address the clinical question. The outside final report was not available at the time of this second opinion interpretation. TYPE OF CONSULTATION: Consult on outside imaging study with images submitted through Outside Image Sharing Service DATE OF CONSULTATION: 07/28/2024 8:03 AM HISTORY: Pulmonary nodule COMPARISON: CT from 10/22/2023 FINDINGS: Changes of prior left lower lobectomy. Unchanged 0.5 cm nodule in the right lower lobe (series 3 image 56). No significant interval change in size of part solid part ground glass spiculated nodule in the inferior and posterior left upper lobe which measures 1.6 x 1.2 cm. No new pulmonary nodule. Additional groundglass or atelectasis in the anterior right upper lobe. No pleural effusion or pneumothorax. Central airways are clear. No axillary, supraclavicular, or mediastinal adenopathy. Heart size is normal without pericardial effusion. Mild multivessel coronary artery calcifications. Thoracic aorta and coronary artery normal caliber. Thyroid is unremarkable. Status post cholecystectomy. Unchanged partially imaged stone in the right kidney. No suspicious osseous lesion. Procedure Note Bee Chavez MD - 07/28/2024 EXAMINATION: RADIOLOGY CONSULTATION ON OUTSIDE IMAGING STUDY STUDY INITIALLY PERFORMED: 06/10/2024 at [facility]. TYPE OF STUDY: Multiple CT images of the chest without intravenous contrast are provided at the time of this interpretation. CONTRAST ROUTE: No contrast was administered. The protocol was adequate to address the clinical question. The outside final report was not available at the time of this second opinion interpretation. TYPE OF CONSULTATION: Consult on outside imaging study with images submitted through Outside Image Sharing Service DATE OF CONSULTATION: 07/28/2024 8:03 AM HISTORY: Pulmonary nodule COMPARISON: CT from 10/22/2023 FINDINGS: Changes of prior left lower lobectomy. Unchanged 0.5 cm nodule in the right lower lobe (series 3 image 56). No significant interval change in size of part solid part ground glass spiculated nodule in the inferior and posterior left upper lobe which measures 1.6 x 1.2 cm. No new pulmonary nodule. Additional groundglass or atelectasis in the anterior right upper lobe. No pleural effusion or pneumothorax. Central airways are clear. No axillary, supraclavicular, or mediastinal adenopathy. Heart size is normal without pericardial effusion. Mild multivessel coronary artery calcifications. Thoracic aorta and coronary artery normal caliber. Thyroid is unremarkable. Status post cholecystectomy. Unchanged partially imaged stone in the right kidney. No suspicious osseous lesion. IMPRESSION: 1. Changes of prior left lower lobectomy with stable 1.6 cm part solid-part groundglass spiculated nodule in the inferior and posterior left upper lobe suspicious for adenocarcinoma spectrum lesion. 2. Stable indeterminate 0.5 cm right lower lobe nodule. The findings, conclusions and recommendations within this report do not replace the initial findings, conclusions and recommendations made at the facility where the study was performed based upon the imaging and clinical condition at that time. Comparison with the prior report and clinical history is necessary. The provided images may or may not represent the [place] source data set and thus may contain changes that may lower the accuracy of this second-opinion interpretation. Dictated by: Lui Navarro MD The radiology attending physician has personally reviewed this study, and had reviewed and/or edited this written report and agrees with it. Electronically signed by: Bee Chavez M.D. Gorge Vallecillo MD IMG CT PROCEDURES Final R esult * CT Body Outside Reference (07/26/2024 10:30 AM CDT) Impressions RAD_PACS_[facility] - 07/26/2024 10:30 AM CDT These images are for Reference purposes only and have not been reviewed by [facility] Radiology. There will be no report generated by a [facility] Radiologist. Narrative RAD_PACHarry_[facility] - 07/26/2024 10:30 AM CDT EXAMINATION: Images For Reference Purposes Only us Gorge Vallecillo MD IMG CT PROCEDURES Final R esult [facility]_P[facility] * COLONOSCOPY (01/11/2020 10:24 AM CDT) Anatomical Region Laterality Modality Other Narrative Procedure Note Montrell Elliott MD - 01/11/2020 10:24 AM CDT ENDOSCOPY LAB Patient Name: Maliha Gallardo Procedure Date: 01/11/2020 10:24AM Date of : 1950 Admit Type: Outpatient Age: 69 Gender: Female Attending MD: Montrell Elliott M.D. Room: [facility] ENDOSCOPY ROOM 04 Note Status: Finalized Procedure: Colonoscopy Indications: Surveillance: Personal history of adenomatous polyps on last colonoscopy 3 years ago; h/o Large hepatic flexure polyp s/p EMR 2014, additional EMR 2016 c/b post polypectomy bleeding, surveillance colonoscopy 2017with 3 additional small polyps. Here for surveillance. Providers: Montrell Elliott M.D. Referring MD: Caden Flanagan M.D. Medicines: Monitored Anesthesia Care Complications: No immediate complications. Estimated blood loss:None. Estimated Blood Loss: Estimated blood loss: none. Procedure: Pre-Anesthesia Assessment: - The risks and benefits of the procedure and thesedation options and risks were discussed with the patient. All questions were answered and informed consent wasobtained. - Immediately prior to administration of medications,the patient was re-assessed for adequacy to receivesedatives. - The anesthesia plan was to use monitored anesthesiacare (MAC). The benefits, risks and alternatives of the procedureand sedation were discussed and informed consent wasobtained. All questions were answered. Please refer to the signed informed consent document in the medical record. Thescope was passed under direct vision. The [id number] introduced through the anus and advanced to theterminal ileum. The colonoscopy was performed withoutdifficulty. The patient tolerated the procedure well. The qualityof the bowel preparation was evaluated using the BBPS([place] Bowel Preparation Scale) with scores of: Right Colon =3 (entire mucosa seen well with no residual staining,small fragments of stool or opaque liquid), Transverse Colon= 3 (entire mucosa seen well with no residual staining,small fragments of stool or opaque liquid) and Left Colon = 3 (entire mucosa seen well with no residual staining,small fragments of stool or opaque liquid). The total BBPSscore equals 9. The quality of the bowel preparation wasgood. Findings: The perianal and digital rectal examinations were normal. The terminal ileum appeared normal. A tattoo was seen at the hepatic flexure. There were two post-polypectomy scars was found around the tattoo site withoutevidence of residual polyp (previously biopsied). A 4 mm polyp was found in the transverse colon. The polyp was semi-sessile. The polyp was removed with a cold snare. Resection and retrieval were complete. A 5 mm polyp was found in the sigmoid colon. The polyp wassemi-sessile. The polyp was removed with a cold snare. Resection and retrieval were complete. Multiple small-mouthed diverticula were found in the sigmoid colon, transverse colon and ascending colon. There were a few hyperplastic appearing polyps in the rectosigmoid that were previously sampled. Internal hemorrhoids were found during retroflexion. The hemorrhoids were mild. Impression: - The examined portion of the ileum was normal. - A tattoo was seen at the hepatic flexure. There weretwo post-polypectomy scars was found around the tattoo site without evidence of residual polyp (previouslybiopsied). - One 4 mm polyp in the transverse colon, removed witha cold snare. Resected and retrieved. - One 5 mm polyp in the sigmoid colon, removed with acold snare. Resected and retrieved. - Diverticulosis in the sigmoid colon, in thetransverse colon and in the ascending colon. - Internal hemorrhoids. Recommendation: - Observe patient's clinical course following today's Colonoscopy. - Await pathology results. - Repeat colonoscopy in 5 years. - Please avoid NSAIDs (i.e Motrin, Aleve, Ibuprofen, Advil, Naproxen, etc) for the next 7 days. If you are taking Aspirin 81mg (baby aspirin) for clear cardiovascular or neurologic indications, you should continue this. - Resume home medications and diet. - Return to primary care physician as previouslyscheduled. - In the unusual situation that you develop abdominal pain, bleeding or other significant problems in thedays following this procedure please call my office at [phone] to speak to my nurses. After hours and evenings please call [phone] and speak to theGI fellow tier and detonator. Please tell them that Dr. Elliott did your procedure and that your were instructed to have thefellow call me or the physician covering for me to discuss the management of your condition. If you have an urgent problem, please go to the nearest emergency room andhave the ER doctor call my office during the day or the GI Fellow after hours and weekends to arrange admission or transfer to our facility. - Call my nurse Nelly Sesay RN in the GI office at [phone] for your final pathology results in 7days. Attending Participation: I personally performed the entire procedure. Electronically Signed By: Montrell Elliott M.D. Montrell Elliott M.D. 01/11/2020 11:00:39 AM Number of Addenda: 0 Note Initiated On: 01/11/2020 10:24 AM Montrell Elliott MD ENDOSCOPY PROCEDURES Final Result from Last 3 Months or Most Recently Relevant to Health Maintenance Insurance [employer] CHOICE MEDICARE PPO MEDICARE [facility] [place] [address] [employer] CHOICE MEDICARE PPO Advance Directives For more information, please contact: [phone] * Full Code (Latest Code Status on File) Date Activated Date Inactivated Comments 01/11/2020 8:36 AM 01/11/2020 4:21 PM Care Teams Morning News Producer Relationship Specialty [place] [address] [place] [address] PCP - General 01/11/20
--- OUTSIDE RECORDS SUMMARY | 2024-08-10 01:16 | XMS_ITS | Referral Summary ---
Author Organization [facility] 2 Address [address] [place] [address] Care Team Providers Care Epilepsy Physician Name Role Phone Caden Flanagan MD Primary Care Provider Encounters Date Type Department Care Team Description 07/28/2024 Telephone [facility] Cardiothoracic Surgery [address] [place] [address] for Advanced Medicine 8th Floor [address] Room [address] [place] [phone] Gorge Vallecillo MD Scheduling Appointments 07/28/2024 2:45 PM CDT Office Visit [facility] Surgery [address] [place] [address] Floor 5 [place] [address] Gorge Vallecillo MD Pulmonary nodule, left (Primary Dx); Lung nodules 2024 3:50 PM CDT - 2024 11:59 PM CDT Hospital Encounter [facility] ([facility]) [address] [place] [address] Diagnosis unknown Discharge Disposition: Discharge to home or self care 07/26/2024 10:30 AM CDT - 07/26/2024 11:59 PM CDT Hospital Encounter [facility] ([facility]) [address] [place] [id number] Discharge Disposition: Discharge to home or self care 07/26/2024 Orders Only [facility] Surgery [facility] Floor 5 [place] [address] Leisa Merrill NP Pulmonary nodule, left (Primary Dx) 07/14/2024 Orders Only [facility] Surgery [address] [facility] Floor 5 [place] [address] Mervat Billy, BRANCH OR 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 LIBRARIAN Lung nodules (Primary Dx) from Last 3 Months Allergies Active Allergy Reactions Criticality Noted Date [...] (12/14/2019): Added automatically from request for surgery [id number] Social History Tobacco Use Types Packs/Day Years Used Date Smoking Tobacco: Every Day Cigarettes Comments No Sex and Gender Information Value Date Recorded Sex Assigned at Not on file 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 TYPE OF STUDY: Multiple CT images of [...] IMAGING STUDY STUDY INITIALLY PERFORMED: 06/10/2024 at [facility]. TYPE OF STUDY: Multiple CT images of [...] images may or may not represent the viejas source data set and thus may contain [...] Outside Reference (07/26/2024 10:30 AM CDT) Impressions RAD_[facility] - 07/26/2024 10:30 AM CDT These images are for Reference purposes only and have not been reviewed by [facility] Radiology. There will be no report generated by a [facility] Radiologist. Narrative RAD_PACS[facility] - 07/26/2024 10:30 AM CDT EXAMINATION: Images [...] Female Attending MD: Montrell Elliott M.D. Room: [facility] ENDOSCOPY ROOM 04 Note Status: Finalized Procedure: Colonoscopy Indications: Surveillance: Personal history of adenomatous polyps on last colonoscopy 3 years ago; h/o Large hepatic flexure polyp s/p EMR 2014, additional EMR 2015 c/b post polypectomy bleeding, surveillance colonoscopy 2017with [...] Thescope was passed under direct vision. The [id number] introduced through the anus and advanced to theterminal ileum. The colonoscopy was performed withoutdifficulty. The patient tolerated the procedure well. The qualityof the bowel preparation was evaluated using the BBPS([place] Bowel Preparation Scale) with scores of: Right [...] this procedure please call my office at [phone] to speak to my nurses. After hours and evenings please call [phone] and speak to theGI fellow hand ironer. Please tell them that Dr. Elliott did [...] Sesay RN in the GI office at [phone] for your final pathology results in 7days. Attending Participation: I personally performed the entire procedure. Electronically Signed By: Montrell Elliott M.D. Montrell Elliott M.D. 01/11/2020 11:00:39 AM Number of Addenda: 0 Note Initiated On: 01/11/2020 10:24 AM Montrell Elliott MD ENDOSCOPY PROCEDURES Final Result from Last 3 Months or Most Recently Relevant to Health Maintenance Insurance [employer] CHOICE MEDICARE PPO MEDICARE [facility] [place] [id number] [employer] CHOICE MEDICARE PPO Advance Directives For more information, please contact: [phone] * Full Code (Latest Code Status on File) Date Activated Date Inactivated Comments 01/11/2020 8:36 AM 01/11/2020 4:21 PM Care Teams Epilepsy Physician Relationship Specialty [place] [address] [place] [address] PCP - General 01/11/20
--- OUTSIDE RECORDS SUMMARY | 2024-08-10 01:16 | XMS_ITS | Clinical Summary ---
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 0 9 Active fluoxetine 20 MG capsule Take 1 capsule (20 mg total) by mouth daily. 1 9 Active albuterol sulfate HFA (PROAIR HFA) 108 (90 Base) MCG/ACT inhaler Inhale 2 puffs into the lungs every 4 (four) hours as needed for Shortness of breath. 1 Inhaler 9 Active amLODIPine (NORVASC) 5 MG tablet Take 1 tablet (5 mg total) by mouth nightly at bedtime. 5 Active TRELEGY ELLIPTA 100-62.5-25 MCG/ACT AEROSOL POWDER, BREATH ACTIVATED Take 1 Inhalation by mouth daily. 5 Active Irbesartan-hydroCH LOROthiazide 300-12.5 MG Tab Take 1 tablet by mouth daily. 5 Active ondansetron (ZOFRAN-ODT) 4 MG disintegrating tablet Take 1 tablet (4 mg total) by mouth every 8 (eight) hours as needed for Nausea. 20 tablet 5 Active HYDROcodone-acetam inophen (NORCO) 5-325 MG tabletIndications: Acute Pain < 7 Day Supply Take 1 tablet by mouth every 6 (six) hours as needed for Pain. Indications: Acute Pain < 7 Day Supply 28 tablet Active Active Problems Problem Noted Date Diagnosed Date Diverticulitis of large inte michelle without perforation or abscess 06/15/2024 Diverticulitis 06/14/2024 Back pain, acute 11/28/2015 Otitis media 11/14/2015 Lip laceration 11/14/2015 History of recent fall 11/14/2015 High blood sugar 06/06/2015 History of lung cancer 02/08/2014 Asthma ([facility]) 02/08/2014 Depression 12/28/2013 Muscle spasm 08/10/2013 Wheezing 06/15/2013 Other tobacco product nicotine dependence, uncom plicated 06/15/2013 Hypertension 04/07/2013 Hyperplastic colon polyp 04/07/2013 Hyperlipidemia 04/07/2013 Resolved Problems Problem Noted Date Diagnosed Date Resolved Date Encounter for screening mamm ogram for breast cancer 06/06/2015 12/03/2019 Encounter for preventive health examination 04/07/2013 12/03/2019 Encounters Date Type Department Care Team Description 07/06/2024 Telephone [facility] Med/Surg [address] [place], [place] [phone] Mine Aguilar RN Follow Up Call (No answer, left VM) 06/16/2024 Travel 06/14/2024 5:07 PM CDT - 06/20/2024 12:20 PM CDT Hospital Encounter [facility] Med/Surg [address] [place], [place] [phone] Camryn Artis MD Islam, Maaroof, MD Harris, Michael, MD Helmholt, Jennifer, NP [...] uit: Not Asked; Counseling Given: Not Answered [facility] Utilities Answer Date Recorded In the past 12 months has th e electric, gas, oil, or water company threatened to [...] any time in the past 12 [facility], were you homeless or living in a halfway (including now)? No 06/14/2024 Comments No Sex [...] 07/28/1967 Zoster Vaccines (1 of 2) 07/28/1999 Annual Medicare Wellness Visit 2014 Dexa Scan (General) 2014 DTaP, Tdap and Td Vaccines ( 1 - Tdap) 11/16/2015 11/15/2015 Pneumococcal Vaccine: 50+ Years (2 of 2 - PPSV23) 01/23/2016 11/28/2015 COVID-19 Vaccine (1 - 2023-2 5 season) 2023 RSV Immunization or 60+ Years (1 - 1-dose 75+ series) 2024 Colorectal Cancer Screening Colonoscopy (10 Years) 01/10/2030 01/11/2020, 12/23/2016 Meningococcal B Vaccine Aged Out No l onger eligible based on patient's age to complete this topic Meningococcal Vaccine Aged Out No nery juan eligible based on patient's age to complete this topic RSV Immunizations Under 20 Months Aged Out No longer eligible b ased on patient's age to complete this topic [...] W/DIFF AUTOMATED STAT 06/14/2024 5:08 PM CDT COLONOSCOPY GENERIC (SCAN ORDER) 01/11/2020 from Last 3 Months or Most Recently Relevant to Health Maintenance Results * (ABNORMAL) BASIC METABOLIC PANEL (06/20/2024 7:55 AM CDT) Only the most recent of3 resultswithin the time period is included. GLUCOSE 105(H) 70 - 99 MG/DL 06/20/2024 9:25 AM CDT [facility] BUN 6(L) 7 - 18 MG/DL 06/20/2024 9:25 AM CDT [facility] CREATININE S/P/B 0.59 0.55 - 1.02 MG/DL 06/20/2024 9:25 AM CDT [facility] SODIUM S/P/B 142 136 - 145 MMOL/L 06/20/2024 9:25 AM CDT [facility] POTASSIUM S/P/B 3.4(L) 3.5 - 5.1 MMOL/L 06/20/2024 9:25 AM CDT [facility] CHLORIDE S/P/B 104 100 - 108 MMOL/L 06/20/2024 9:25 AM CDT [facility] CO2 26.2 21 - 32 MMOL/L 06/20/2024 9:25 AM CDT [facility] CALCIUM S/P/B 8.9 8.5 - 10.1 MG/DL 06/20/2024 9:25 AM CDT [facility] ANION GAP 11.8 5 - 15 MMOL/L 06/20/2024 9:25 AM CDT [facility] BUN CREATININE RATIO 10.2 6 - 26 06/20/2024 9:25 AM CDT [facility] GFR ESTIMATE >90 >90 ML/MIN/1.7 3 M2 06/20/2024 9:25 AM CDT [facility] Comment: NOTE: eGFR is not calculated for patients <18 years of age. This is an estimated GFR calculation using the new CKD EPI creatinine equation without race and so does not require a correction factor for race. This estimated GFR should not be used for calculating drug doses. 06/20/2024 7:55 AM CDT us Bridget Collins MD LABORATORY Final Result [facility] [address] [place] [address], * (ABNORMAL) CBC W/DIFF AUTOMATED (06/20/2024 7:55 AM CDT) Only the most recent of6 resultswithin the time period is included. WBC 10.48 4.4 - 11.0 x10'3/uL 06/20/2024 9:08 AM CDT [facility] RBC 3.83(L) 4.50 - 5.10 x10'6/uL 06/20/2024 9:08 AM CDT [facility] HGB 12.2(L) 12.3 - 15.3 G/DL 06/20/2024 9:08 AM CDT [facility] HCT 36.2 35.9 - 44.6 % 06/20/2024 9:08 AM CDT [facility] MCV 94.5 80.0 - 96.0 FL 06/20/2024 9:08 AM CDT [facility] MCH 31.9(H) 25.3 - 30.9 PG 06/20/2024 9:08 AM CDT [facility] MCHC 33.7 31.0 - 34.1 G/DL 06/20/2024 9:08 AM CDT [facility] RDW 15.0 12.4 - 15.1 % 06/20/2024 9:08 AM T [facility] PLT 270 151 - 353 x10'3/uL 06/20/2024 9:08 AM T [facility] MPV 8.9(L) 9.6 - 12.0 FL 06/20/2024 9:08 AM [facility] RBC MORPHOLOGY NORMAL 06/20/2024 9:08 AM T [facility] PLT MORPH. NORMAL 06/20/2024 9:08 AM T [facility] WBC MORPHOLOGY NORMAL 06/20/2024 9:08 AM T [facility] LYMPHOCYTES % 14.5(L) 15.8 - 45.0 % 06/20/2024 9:08 AM T [facility] NEUTROPHILS % 75.4(H) 42.1 - 71.9 % 06/20/2024 9:08 AM T [facility] MONOCYTES % 8.2 5.7 - 12.5 % 06/20/2024 9:08 AM T [facility] EOSINOPHILS 0.9 0.0 - 5.6 % 06/20/2024 9:08 AM T [facility] BASOPHILS 0.5 0.0 - 1.3 % 06/20/2024 9:08 AM CDT [facility] ABS. NEUTROPHILS 7.91(H) 1.40 - 6.00 x10'3/uL 06/20/2024 9:08 AM CDT [facility] IMMATURE GRANS % 0.5 0.0 - 0.5 % 06/20/2024 9:08 AM CDT [facility] ABS. LYMPHOCYTES 1.52 0.80 - 4.70 x10'3/uL 06/20/2024 9:08 AM CDT [facility] 06/20/2024 7:55 AM CDT Bridget Collins MD LABORATORY Final Result [facility] [address] [place] [address], * CT CHEST WO CON (06/18/2024 9:11 [...] 12:09 PM Narrative 06/18/2024 12:49 PM CDT [facility] [address] [place] [phone] EXAM: NONCONTRAST CT CHEST INDICATION: Partially imaged [...] 9 mm. This nodule was present in 2020 but much smaller, approximately 8 mm diameter. [...] Procedure Note Partha Sutherland MD - 06/18/2024 [facility] [address] [place] [phone] EXAM: NONCONTRAST CT CHEST INDICATION: Partially imaged [...] By: Partha Sutherland MD, 06/18/2024 12:09 PM us Bridget Collins MD CT Final Result * [...] 10:11 AM Narrative 06/18/2024 10:47 AM CDT [place] [id number] [place] [address] EXAMINATION: CT Abdomen and Pelvis without contrast [...] Procedure Note Neo Saul MD - 06/18/2024 [facility] [address] [facility]. [place] [phone] EXAMINATION: CT Abdomen and Pelvis without contrast [...] - 2.0 MMOL/L 06/18/2024 9:17 AM CDT [facility] 06/18/2024 8:43 AM CDT us Bridget Collins MD LABORATORY Final Result [facility] [address] [place] [address], [place] [phone] * (ABNORMAL) MAGNESIUM (06/18/2024 6:21 AM CDT) Only the most recent of2 resultswithin the time period is included. MAGNESIUM 1.6(L) 1.8 - 2.4 MG/DL 06/18/2024 8:43 AM CDT [facility] 06/18/2024 6:21 AM CDT us Bridget Collins MD LABORATORY Final Result [facility] [address] [place] [address], [place] [phone] * XR ABD 2 VIEW (06/17/2024 2:09 [...] 2:19 PM Narrative 06/17/2024 2:22 PM CDT [facility] [address] [facility] [place] [address] EXAMINATION: Abdomen 2 views EXAM DATE/TIME: 06/17/2024 [...] Procedure Note Chris Frost MD - 06/17/2024 [facility] [address] [place] [address] EXAMINATION: Abdomen 2 views EXAM DATE/TIME: 06/17/2024 [...] COLOR (U) YELLOW 06/15/2024 2:46 PM CDT [facility] TRANSPARENCY HAZY 06/15/2024 2:46 PM CDT [facility] SPECIFIC GRAVITY (U) >1.030(H) 1.000 - 1.030 06/15/2024 2:46 PM CDT [facility] U PH 6.0 5.0 - 9.0 06/15/2024 2:46 PM CDT [facility] LEUKOCYTES (U) 1+(A) NEGATIVE 06/15/2024 2:46 PM CDT [facility] NITRITES NEGATIVE NEGATIVE 06/15/2024 2:46 PM CDT [facility] PROTEIN RANDOM (U) NEGATIVE NEGATIVE 06/15/2024 2:46 PM CDT [facility] GLUCOSE (U) NEGATIVE NEGATIVE 06/15/2024 2:46 PM CDT [facility] KETONES MG/DL (U) 1+(A) NEGATIVE 06/15/2024 2:46 PM CDT [facility] BILIRUBIN (U) NEGATIVE NEGATIVE 06/15/2024 2:46 PM CDT [facility] BLOOD (U) 2+(A) NEGATIVE 06/15/2024 2:46 PM CDT [facility] WBC/HPF 5-10 0 - 5 /HPF 06/15/2024 2:46 PM CDT [facility] RBC/HPF 5-10 0 - 5 /HPF 06/15/2024 2:46 PM CDT [facility] EPI/HPF FEW /HPF 06/15/2024 2:46 PM CDT [facility] URINE SPECIMEN OBTAINED BY CLEAN CATCH PROCEDURE / Unknown 06/15/2024 2:30 PM CDT Camryn Artis MD URINE ORDERABLES Final Result [facility] [address] [place] [address], [place] [phone] * (ABNORMAL) PARTIAL THROMBOPLASTIN TIME,PTT (06/15/2024 6:02 AM CDT) PTT 38.5(H) 27.0 - 36.8 SEC 06/15/2024 7:08 AM CDT [facility] 06/15/2024 6:02 AM CDT us Malcolm Hunter MD LABORATORY Final Result Performing Organization Address City/[facility]/ZIP Co de Phone Number [facility] [address] [place] [address], [place] [phone] * (ABNORMAL) PROTHROMBIN TIME, VENOUS (06/15/2024 6:02 AM CDT) PROTIME 14.7(H) 9.1 - 12.4 SEC 06/15/2024 7:08 AM CDT [facility] INR 1.3 06/15/2024 7:08 AM CDT [facility] Comment: Recommend INR ranges for Oral Anticoagulant Therapy: Mechanical Cardiac Values 2.5-3.5 All others indication 2.0-3.0 06/15/2024 6:02 AM CDT Malcolm Hunter MD LABORATORY Final Result [facility] [address] [place] [address], [place] [phone] * (ABNORMAL) COMPREHENSIVE METABOLIC PANEL (06/15/2024 6:02 AM CDT) Only the most recent of2 resultswithin the time period is included. GLUCOSE 119(H) 70 - 99 MG/DL 06/15/2024 7:22 AM CDT [facility] BUN 12 7 - 18 MG/DL 06/15/2024 7:22 AM CDT [facility] CREATININE S/P/B 0.80 0.55 - 1.02 MG/DL 06/15/2024 7:22 AM CDT [facility] SODIUM S/P/B 140 136 - 145 MMOL/L 06/15/2024 7:22 AM T [facility] POTASSIUM S/P/B 3.6 3.5 - 5.1 MMOL/L 06/15/2024 7:22 AM CDT [facility] CHLORIDE S/P/B 105 100 - [id number]|2024-08-10 10:43:00|2024-08-10 10:43:00|P.PNAN_ITS|YADIRA|Health Information Management|[id number]|"Anes - Initial Pre Proc Eval Procedure: Operation Date: 08/10/24 11:30 Proposed Procedures p Colonoscopy - Justin Desai MD Date/Time: 08/10/24 10:43 Surgeon: Justin Desai MD Pre Op Diagnosis: hx of colon polyps Patient Data Age: 74 Gender: F Height: 1.57 m Weight: 65 kg Last Vital Signs Temp 36.1 C L 08/10/24 10:27 Pulse 75 08/10/24 10:27 Resp 18 08/10/24 10:27 BP 148/72 H 08/10/24 10:27 Pulse Ox 97 08/10/24 10:27 O2 Del Method Room Air 08/10/24 10:27 Allergies Allergy/AdvReac Type Severity Reaction Status Date / Time iodine Allergy Unknown Anaphylactic Verified 08/10/24 10:13 Shock meperidine Allergy Unknown Anaphylactic Verified 08/10/24 10:13 Shock Penicillins Allergy Unknown ASTHMA Verified 08/10/24 10:13 ATTACK olodaterol (From Stiolto AdvReac Intermediate Cramping Verified 08/10/24 10:13 Respimat) of the Muscles tiotropium (From Stiolto AdvReac Intermediate Cramping Verified 08/10/24 10:13 Respimat) of the Muscles Home Medications Medication Instructions Recorded Confirmed Type amlodipine 5 mg tablet 5 mg PO QPM #90 tabs 10/17/23 08/10/24 Rx atorvastatin 40 mg tablet See Rx Instructions .Route 03/12/24 08/10/24 Rx .COMPLEX #100 tabs fluoxetine 20 mg capsule See Rx Instructions .Route 03/12/24 08/10/24 Rx .COMPLEX #100 caps fluticasone fur. 100 mcg-umeclid See Rx Instructions .Route 04/01/24 08/10/24 Rx 62.5 mcg-vilant 25 mcg .COMPLEX #60 ea inhalat.powder (Trelegy Ellipta) irbesartan 300 See Rx Instructions .Route 06/14/24 08/10/24 Rx mg-hydrochlorothiazide 12.5 mg .COMPLEX #90 tabs tablet ezetimibe 10 mg tablet See Rx Instructions .Route 06/28/24 08/10/24 Rx .COMPLEX #90 tabs ketorolac 0.5 % eye drops 1 drp RIGHT EYE TID 08/03/24 08/10/24 History prednisolone acetate 1 % eye 1 drp RIGHT EYE BID 08/03/24 08/10/24 History drops,suspension Patient hx anesthesia problems: none Family hx anesthesia problems: none Results Review: All pre-operative results and documents have been reviewed as part of the pre- operative evaluation. [facility] Past Medical History Medical History (Updated 08/09/24 @ 14:54 by Emre Morrissey, ) COPD (chronic obstructive pulmonary disease) ASHWIN (acute kidney injury) ASHWIN (acute kidney injury) COVID-19 Sepsis Basal cell carcinoma of scalp Cataract Basal cell carcinoma (BCC) of head Muscle stiffness Adverse effect due to correct medicinal substance, properly given Claudication Hyperlipidemia Mixed hyperlipidemia Tobacco abuse Sciatica of left side Pulsatile abdominal mass Pulmonary nodule, right Postmenopausal Other iron deficiency anemias Nicotine dependence, unspecified, uncomplicated Major depressive disorder, recurrent, moderate Hx of cancer of lung Essential (primary) hypertension Coronary atherosclerosis due to calcified coronary lesion Colon polyposis Breast screening Basal cell carcinoma (BCC) of clavicular area Atherosclerosis of aorta Adenomatous polyposis coli Acquired polycythemia Benign essential HTN Breast cancer screening Encounter for blood transfusion Post-polypectomy bleeding Abscess of skin of neck Pulmonary nodules SCC (squamous cell carcinoma), shoulder MDD (major depressive disorder) Abnormal colonoscopy need to repeat 2020 Colon polyps Lung cancer Mixed hyperlipidemia HTN (hypertension) with goal to be determined Surgical History Surgical History H/O rectal polypectomy S/P partial lobectomy of lung 1994 Family History Family History Other Carcinoma of colon Heart disease Hypertension Social History Social History Social History: Single Smoking packs per day: 0.50 Smoking cigarettes per day: 10.0 Years smoked: 50 Smoking pack-years: 25.00 Smoking status: Current every day smoker Second hand tobacco smoke exposure: No Alcohol intake: current Drinks per week: 2 Substance use: never Substance use type: does not use Do You Feel Safe in your Home?: Yes Lack of Transportation: No Lack of Food: Never True Current Housing: I Have Housing Concerned About Future Housing: No Difficulty Paying Gas/Electric Bills: No Difficulty Paying for Meds: No Currently Unemployed: YES Education: Decline to Answer Difficulty w/ Childcare or Family Care: No Living arrangements: with family Occupation/Education: retired Gender identity (if verbalized by the patient): Female Sexual Orientation (if Verbalized by the Patient): Straight or Heterosexual Spiritual care concerns: No Anes - Eval Final PreProcedure Day of Procedure 08/10/24 10:43 Patient weight: overweight Heart: regular rate and rhythm Lungs: clear to auscultation Airway: Mallampati scale class II Neurological: alert and oriented Last oral intake: >/= 8 hours ASA classification: III Emergent: no Anesthetic plan: proceed Anesthesia type and monitoring: general GIVS and standard monitoring Results Review: All pre-operative results and documents have been reviewed as part of the pre- operative evaluation. Informed Consent: The patient's anesthetic plan and its attendant risks and benefits were discussed with the patient/family/POA. Questions were solicited and answers provided to the satisfaction of the patient/family/POA. "
[2024-08-10 10:27] VITALS: BP 148/72; PULSE 75; RESP 18; TEMP 36.1; O2SAT 97; BMI 26.2
[2024-08-10] MEDS: LACTATED RINGERS 1,000 ML 150 ML IV CONT (10:40)
--- NOTE | 2024-08-10 10:43 | WPDANESEPPF ---
Anes - Initial Pre Proc Eval Procedure: Operation Date: 08/10/24 11:30 Proposed Procedures p Colonoscopy - Justin Desai MD Date/Time: 08/10/24 10:43 Surgeon: Justin Desai MD Pre Op Diagnosis: hx of colon polyps Patient Data Age: 74 Gender: F Height: 1.57 m Weight: 65 kg Last Vital Signs Temp 36.1 C L 08/10/24 10:27 Pulse 75 08/10/24 10:27 Resp 18 08/10/24 10:27 BP 148/72 H 08/10/24 10:27 Pulse Ox 97 08/10/24 10:27 O2 Del Method Room Air 08/10/24 10:27 Allergies Allergy/AdvReac Type Severity Reaction Status Date / Time iodine Allergy Unknown Anaphylactic Verified 08/10/24 10:13 Shock meperidine Allergy Unknown Anaphylactic Verified 08/10/24 10:13 Shock Penicillins Allergy Unknown ASTHMA Verified 08/10/24 10:13 ATTACK olodaterol (From Stiolto AdvReac Intermediate Cramping Verified 08/10/24 10:13 Respimat) of the Muscles tiotropium (From Stiolto AdvReac Intermediate Cramping Verified 08/10/24 10:13 Respimat) of the Muscles Home Medications Medication Instructions Recorded Confirmed Type amlodipine 5 mg tablet 5 mg PO QPM #90 tabs 10/17/23 08/10/24 Rx atorvastatin 40 mg tablet See Rx Instructions .Route 03/12/24 08/10/24 Rx .COMPLEX #100 tabs fluoxetine 20 mg capsule See Rx Instructions .Route 03/12/24 08/10/24 Rx .COMPLEX #100 caps fluticasone fur. 100 mcg-umeclid See Rx Instructions .Route 04/01/24 08/10/24 Rx 62.5 mcg-vilant 25 mcg .COMPLEX #60 ea inhalat.powder (Trelegy Ellipta) irbesartan 300 See Rx Instructions .Route 06/14/24 08/10/24 Rx mg-hydrochlorothiazide 12.5 mg .COMPLEX #90 tabs tablet ezetimibe 10 mg tablet See Rx Instructions .Route 06/28/24 08/10/24 Rx .COMPLEX #90 tabs ketorolac 0.5 % eye drops 1 drp RIGHT EYE TID 08/03/24 08/10/24 History prednisolone acetate 1 % eye 1 drp RIGHT EYE BID 08/03/24 08/10/24 History drops,suspension Patient hx anesthesia problems: none Family hx anesthesia problems: none Results Review: All pre-operative results and documents have been reviewed as part of the pre-operative evaluation. [facility] Past Medical History Medical History (Updated 08/09/24 @ 14:54 by Emre Morrissey DO) COPD (chronic obstructive pulmonary disease) ASHWIN (acute kidney injury) ASHWIN (acute kidney injury) COVID-19 Sepsis Basal cell carcinoma of scalp Cataract Basal cell carcinoma (BCC) of head Muscle stiffness Adverse effect due to correct medicinal substance, properly given Claudication Hyperlipidemia Mixed hyperlipidemia Tobacco abuse Sciatica of left side Pulsatile abdominal mass Pulmonary nodule, right Postmenopausal Other iron deficiency anemias Nicotine dependence, unspecified, uncomplicated Major depressive disorder, recurrent, moderate Hx of cancer of lung Essential (primary) hypertension Coronary atherosclerosis due to calcified coronary lesion Colon polyposis Breast screening Basal cell carcinoma (BCC) of clavicular area Atherosclerosis of aorta Adenomatous polyposis coli Acquired polycythemia Benign essential HTN Breast cancer screening Encounter for blood transfusion Post-polypectomy bleeding Abscess of skin of neck Pulmonary nodules SCC (squamous cell carcinoma), shoulder MDD (major depressive disorder) Abnormal colonoscopy need to repeat 2020 Colon polyps Lung cancer Mixed hyperlipidemia HTN (hypertension) with goal to be determined Surgical History Surgical History H/O rectal polypectomy S/P partial lobectomy of lung 1994 Family History Family History Other Carcinoma of colon Heart disease Hypertension Social History Social History Social History: Single Smoking packs per day: 0.50 Smoking cigarettes per day: 10.0 Years smoked: 50 Smoking pack-years: 25.00 Smoking status: Current every day smoker Second hand tobacco smoke exposure: No Alcohol intake: current Drinks per week: 2 Substance use: never Substance use type: does not use Do You Feel Safe in your Home?: Yes Lack of Transportation: No Lack of Food: Never True Current Housing: I Have Housing Concerned About Future Housing: No Difficulty Paying Gas/Electric Bills: No Difficulty Paying for Meds: No Currently Unemployed: YES Education: Decline to Answer Difficulty w/ Childcare or Family Care: No Living arrangements: with family Occupation/Education: retired Gender identity (if verbalized by the patient): Female Sexual Orientation (if Verbalized by the Patient): Straight or Heterosexual Spiritual care concerns: No Anes - Eval Final PreProcedure Day of Procedure 08/10/24 10:43 Patient weight: overweight Heart: regular rate and rhythm Lungs: clear to auscultation Airway: Mallampati scale class II Neurological: alert and oriented Last oral intake: >/= 8 hours ASA classification: III Emergent: no Anesthetic plan: proceed Anesthesia type and monitoring: general GIVS and standard monitoring Results Review: All pre-operative results and documents have been reviewed as part of the pre-operative evaluation. Informed Consent: The patient's anesthetic plan and its attendant risks and benefits were discussed with the patient/family/POA. Questions were solicited and answers provided to the satisfaction of the patient/family/POA.
--- NOTE | 2024-08-10 11:06 | P.HP_ITS ---
H&P: HPI History of Present Illness Date/Time: 08/10/24 11:06 Chief Complaint: History of colon polyps Narrative: The patient has a history of colonic polyps, the last colonoscopy was 5 years ago. Review of Systems Review of Systems: All systems reviewed & are unremarkable except as noted in HPI and below [facility] Past Medical History Medical History (Updated 08/10/24 @ 10:51 by Emre Morrissey, ) COPD (chronic obstructive pulmonary disease) ASHWIN (acute kidney injury) ASHWIN (acute kidney injury) COVID-19 Sepsis Basal cell carcinoma of scalp Cataract Basal cell carcinoma (BCC) of head Muscle stiffness Adverse effect due to correct medicinal substance, properly given Claudication Hyperlipidemia Mixed hyperlipidemia Tobacco abuse Sciatica of left side Pulsatile abdominal mass Pulmonary nodule, right Postmenopausal Other iron deficiency anemias Nicotine dependence, unspecified, uncomplicated Major depressive disorder, recurrent, moderate Hx of cancer of lung active again as of 07/28/2024 Essential (primary) hypertension Coronary atherosclerosis due to calcified coronary lesion Colon polyposis Breast screening Basal cell carcinoma (BCC) of clavicular area Atherosclerosis of aorta Adenomatous polyposis coli Acquired polycythemia Benign essential HTN Breast cancer screening Encounter for blood transfusion Post-polypectomy bleeding Abscess of skin of neck Pulmonary nodules SCC (squamous cell carcinoma), shoulder MDD (major depressive disorder) Abnormal colonoscopy need to repeat 2019 Colon polyps Lung cancer Mixed hyperlipidemia HTN (hypertension) with goal to be determined Surgical History Surgical History H/O rectal polypectomy S/P partial lobectomy of lung 1994 Family History Family History Other Carcinoma of colon Heart disease Hypertension Social History Social History Social History: Single Smoking packs per day: 0.50 Smoking cigarettes per day: 10.0 Years smoked: 50 Smoking pack-years: 25.00 Smoking status: Current every day smoker Second hand tobacco smoke exposure: No Alcohol intake: current Drinks per week: 2 Substance use: never Substance use type: does not use Do You Feel Safe in your Home?: Yes Lack of Transportation: No Lack of Food: Never True Current Housing: I Have Housing Concerned About Future Housing: No Difficulty Paying Gas/Electric Bills: No Difficulty Paying for Meds: No Currently Unemployed: YES Education: Decline to Answer Difficulty w/ Childcare or Family Care: No Living arrangements: with family Occupation/Education: retired Gender identity (if verbalized by the patient): Female Sexual Orientation (if Verbalized by the Patient): Straight or Heterosexual Spiritual care concerns: No Meds Home Medications and Allergies Home Medications Medication Instructions Recorded Confirmed Type amlodipine 5 mg tablet 5 mg PO QPM #90 tabs 10/17/23 08/10/24 Rx atorvastatin 40 mg tablet See Rx Instructions .Route 03/12/24 08/10/24 Rx .COMPLEX #100 tabs fluoxetine 20 mg capsule See Rx Instructions .Route 03/12/24 08/10/24 Rx .COMPLEX #100 caps fluticasone fur. 100 mcg-umeclid See Rx Instructions .Route 04/01/24 08/10/24 Rx 62.5 mcg-vilant 25 mcg .COMPLEX #60 ea inhalat.powder (Trelegy Ellipta) irbesartan 300 See Rx Instructions .Route 06/14/24 08/10/24 Rx mg-hydrochlorothiazide 12.5 mg .COMPLEX #90 tabs tablet ezetimibe 10 mg tablet See Rx Instructions .Route 06/28/24 08/10/24 Rx .COMPLEX #90 tabs ketorolac 0.5 % eye drops 1 drp RIGHT EYE TID 08/03/24 08/10/24 History prednisolone acetate 1 % eye 1 drp RIGHT EYE BID 08/03/24 08/10/24 History drops,suspension Allergies Allergy/AdvReac Type Severity Reaction Status Date / Time iodine Allergy Unknown Anaphylactic Verified 08/10/24 10:13 Shock meperidine Allergy Unknown Anaphylactic Verified 08/10/24 10:13 Shock Penicillins Allergy Unknown ASTHMA Verified 08/10/24 10:13 ATTACK olodaterol (From Stiolto AdvReac Intermediate Cramping Verified 08/10/24 10:13 Respimat) of the Muscles tiotropium (From Stiolto AdvReac Intermediate Cramping Verified 08/10/24 10:13 Respimat) of the Muscles Vital Signs Vital Signs - 24 hr 08/10/24 10:27 Temperature 97 F L Pulse Rate 75 Respiratory Rate 18 Blood Pressure 148/72 H Pulse Oximetry 97 Oxygen Delivery Room Air Exam Const: General: cooperative and healthy appearing Resp: Effort & Inspection: normal respiratory effort and able to speak in complete sentences Auscultation: clear to auscultation bilaterally Cardio: Rate: regular rate Rhythm: regular rhythm GI: Inspection: normal to inspection GI Palp: No No hepatosplenomegaly present Auscultation: normal bowel sounds Rectal Exam: deferred Skin: General skin exam: normal color Psych: Appearance: grossly normal Mental Status: mental status grossly normal Assessment and Plan Assessment and plan (1) Colon polyps: Qualifiers: Colon polyp type: unspecified Colon location: unspecified part of colon Qualified Code(s): K63.5 - Polyp of colon Code(s): K63.5 - Polyp of colon Status: Acute Assessment and Plan: The patient is deemed a good candidate for the procedure. Consent signed. Will proceed.
[2024-08-10 11:42] VITALS: BP 119/96; PULSE 73; RESP 19; O2SAT 95
[2024-08-10 11:52] VITALS: BP 156/74; PULSE 67; RESP 22; O2SAT 100
[2024-08-10 12:02] VITALS: BP 144/76; PULSE 66; RESP 24; O2SAT 99
== END 2024-08-10 12:17 | disposition home or self-care (01) ==
PROVIDERS: PCP Internal Medicine; Referring Provider Internal Medicine; Visit Provider Internal Medicine Gastroenterology
PROC: 0DJD8ZZ Inspection of Lower Intestinal Tract, Via Natural or Artificial Opening Endoscopic (ICD-10-PCS; CPT 45378; principal; 2024-08-10 11:30)
DX: Z12.11 Encounter for screening for malignant neoplasm of colon (principal); K57.30 Diverticulosis of large intestine without perforation or abscess without bleeding; Z86.0100 Personal history of colon polyps, unspecified; K56.609 Unspecified intestinal obstruction, unspecified as to partial versus complete obstruction; Z53.8 Procedure and treatment not carried out for other reasons; F17.210 Nicotine dependence, cigarettes, uncomplicated
CPT/HCPCS: G0105; J2003; J2704; J7120